=== PATIENT | male | born 1950 | race Caucasian/White ===

== ENCOUNTER 2017-09-21 09:34 | Outpatient (CLI) | payer MEDICARE, OTHER ==
--- NOTE | 2017-09-21 11:33 | RAD ---
TWO VIEWS OF THE CHEST: 09/21/2017 HISTORY: Shortness of breath. Dyspnea. COMPARISON: 03/23/2017 FINDINGS: There is a moderate sized left pleural effusion, increased since the 03/23/2017 exam. There is nonsp ecific perihilar and bibasilar interstitial opacity. There is increasing density in the left base, s uggesting left lower lobe volume loss, associated with enlarging left pleural effusion. Mass density is again seen within the right upper lobe, just inferior to the right first rib. Stent material overlies the region of the SVC. IMPRESSION: 1. Extensive interstitial opacity in the bilateral perihilar regions in both lung bases, which could signify interstitial edema or interstitial infectious process, slightly worsened when compared to pr ior imaging. 2. Enlarging left-sided pleural effusion with associated worsening opacity in the left lung base. 3. Stable nodular mass in the right upper lobe. POS: [facility]
== END 2017-09-21 09:35 | disposition home or self-care (01) ==
LOC: RAD 09:34
PROVIDERS: ATTEND Internal Medicine Critical Care Medicine
DX: R06.00 Dyspnea, unspecified (principal); J90 Pleural effusion, not elsewhere classified; R91.1 Solitary pulmonary nodule; J98.4 Other disorders of lung
CPT/HCPCS: 71020

== ENCOUNTER 2017-10-03 06:34 | Inpatient (IN) | payer MEDICARE, OTHER ==
[2017-10-03] MEDS ORDERED: Nitroglycerin 2% Ointment 1 INCH/1 GM Packet ONE (07:14)
[2017-10-03 07:15] LABS: Lactic Acid - Sepsis 1.2 mmol/L (0.5-2.2)
[2017-10-03 07:21] LABS: ALT (SGPT) 13 U/L (8-55); AST (SGOT) 16 U/L (5-34); Alkaline Phosphatase 97 U/L (40-150); Anion Gap 14 mmol/L (10-20); BUN (Urea Nitrogen) 26 mg/dL (8.4-25.7); Bilirubin, Total 0.5 mg/dL (0.2-1.2); CK (CPK) 48 U/L (30-200); Calc. Creatinine Clearance 0 mL/min (70-130); Calcium 9.2 mg/dL (7.8-10.44); Carbon Dioxide 29 mmol/L (23-31); Chloride 103 mmol/L (98-107); Estimated GFR-MDRD 18; Globulin 4.2 g/dL (2.4-3.5); Lipase 10 U/L (8-78); Protein, Total 7.8 g/dL (5.8-8.1)
[2017-10-03 07:24] LABS: Troponin I 0.037 ng/mL (< 0.028)
[2017-10-03] MEDS ORDERED: Piperacillin/Tazobactam 2.25 GM in Sodium Chloride 0.9% 100 ML IVPB ONE (07:30)
[2017-10-03 07:35] LABS: #Basophils 0.1 thou/uL (0.0-0.2); #Eosinphils 0.2 thou/uL (0.0-0.7); #Lymphocytes 2.2 thou/uL (1.20-3.40); #Monocytes 0.9 thou/uL (0.11-0.59); #Neutrophils 11.1 thou/uL (1.40-6.50); %Basophils 0.4 % (0.0-1.0); %Eosinophils 1.3 % (0.0-10.0); %Lymphocytes 15.4 % (21.0-51.0); %Monocytes 6.3 % (0.0-10.0); Hematocrit 35.2 % (42.0-52.0); Macrocytosis SLIGHT = 6-15 cells (100X) (0-5/hpf); Mean Platelet Volume 7.9 fL (7.4-10.4); Polychromasia SLIGHT = 2-3 cells (100X) (0-2/hpf); Red Blood Cell (RBC) Count 3.14 mill/uL (4.70-6.10); Target Cells SLIGHT = 2-5 cells (100X) (0-1/hpf); White Blood Cell (WBC) Count 14.5 thou/uL (4.8-10.8)
--- NOTE | 2017-10-03 08:57 | RAD ---
PORTABLE CHEST: HISTORY: Shortness of breath and dyspnea. COMPARISON: 09/21/17. FINDINGS/IMPRESSION: Cardiomegaly with vascular congestion. Bilateral effusions, larger on the left. Interstitial and strange zy alveolar densities bilaterally, prominent in the lateral lung suggesting edema. Superimposed infi ltrate not excluded. The chest has worsened when compared to 09/21/17. POS: [facility]
[2017-10-03 11:17] LABS: Troponin I 0.041 ng/mL (< 0.028)
[2017-10-03] MEDS ORDERED: traMADol HCl 50 MG TAB PO PRN (12:26)
[2017-10-03 14:08] LABS: Troponin I 0.036 ng/mL (< 0.028)
--- NOTE | 2017-10-03 14:27 | HP ---
DATE OF ADMISSION: 10/03/2017 PRIMARY CARE PHYSICIAN: Dr. Pedro Segovia. HISTORY OF PRESENT ILLNESS: Dyspnea and low pulse ox. HISTORY OF PRESENT ILLNESS: This is a 67-year-old gentleman who has a history of type 1 diabetes; end-stage renal disease, on hemodialysis; known coronary artery disease; known peripheral vascular disease; COPD with pulmonary scarring; hypertension; history of tobacco abuse; history of a lcohol abuse, who presents to the emergency department today with episode of shortness of breath and a low pulse ox. The patient states that he was in his usual state of health over the past couple of months. He had dialysis 2 days ago, which was uneventful, and following that he developed shortness of breath and his pulse ox was down to 68%. It improved somewhat, and he was able to drive himself t o dialysis, but then they sent him to the emergency room for evaluation. Due to the low pulse ox and his dyspnea on exertion, he was sent to the emergency room and was evaluated and found to have a com plete white out on his chest x-ray and started on oxygen therapy, which he uses at home as well as an tibiotics. He is feeling some better now. Dialysis was initiated this morning here in the hospital. He has had some improvement of his shortness of breath, but continued to be not quite at his baseli ne. On review of his chart, he has had several episodes of bronchitis, COPD exacerbation, which typically would improve after a couple of days of antibiotics and steroids. He had a pulmonary function test done in 06/[address] Martinez, which revealed severe restrictive disease. He is status post thora centesis by Dr. Martinez in 2016 for persistent pleural effusion. He was last seen by Dr. Funes close to a year ago, and he is uncertain of when his last echocardiogram was done in her office. PAST MEDICAL AND SURGICAL HISTORY: Hypertension, hyperlipidemia, known coronary artery disease, stat us post cardiac catheterization with stent placement, COPD with severe restrictive lung disease, type 1 diabetes, history of alcohol abuse, history of tobacco abuse. PAST SURGICAL HISTORY: Cholecystectomy, multiple right shoulder surgeries, splenectomy, left thorace ntesis for pleural effusion, and AV fistula for hemodialysis. MEDICATIONS: Include amlodipine 10 mg daily, prednisone p.r.n., albuterol inhaler p.r.n., Humulin R 5 units t.i.d. with meals, Novolin R sliding scale, Lantus 30 units in the evening, lisinopril 20 mg daily. ALLERGIES: None. FAMILY HISTORY: Father at 82 with heart disease. Mother at 100 years of age. SOCIAL HISTORY: He lives alone. He is . Quit smoking in 2012. Denies alcohol use at this t [place], but was a heavy drinker in the past. He has been sober for over 20 years. Daily caffeine usage . REVIEW OF SYSTEMS: As per the history of present illness. General: He denies any recent fevers, ch ills, or recent upper respiratory symptoms. HEENT: Denies headache, visual, or hearing changes. Ca rdiac: Denies chest pain, episodes of shortness of breath, but no palpitations. He is followed by John Funes with Cardiology. Pulmonary: No cough and no hemoptysis. Positive for dyspnea as well as dy spnea on exertion. He wears oxygen chronically at home. Gastrointestinal: Denies nausea, vomiting, abdominal pain, melena, or hematochezia. Genitourinary: Denies dysuria or hematuria. Neurologic: Positive weakness. No seizures, syncope, no falls recently. PHYSICAL EXAMINATION: VITAL SIGNS: Temperature 98.1, pulse of 83, respirations 18, blood pressure 134/69, pulse ox of 91% on 2 liters. GENERAL: He is awake and alert, in no acute distress. No conversational dyspnea. NECK: Supple. No JVD, adenopathy, or bruits. HEART: Regular rate and rhythm with 2/6 systolic ejection murmur. LUNGS: Decreased breath sounds bilaterally. He does have scattered rhonchi throughout with expirato ry wheezes, no rales at the bases. ABDOMEN: Flat, soft, nontender, nondistended. No hepatosplenomegaly. No CVA tenderness. EXTREMITIES: Trace edema bilaterally. LABORATORY DATA: Sodium 141, potassium 4.6, chloride 103, CO2 of 29, BUN and creatinine 26 and 3.42 with a GFR of 18, glucose was 140, lactic acid 1.2, calcium 9.2, AST and ALT are normal. Troponin I of 0.037 and 0.041. BNP is pending. Lipase was normal. White blood cell count was elevated at 14,5 00, hemoglobin and hematocrit 11.2 and 35.2, platelets of 298. Chest x-ray revealed cardiomegaly wit h bilateral effusions, worse on the left. Hazy alveolar densities suggesting edema, but cannot exclu de infiltrate. ASSESSMENT AND PLAN: This is a 67-year-old gentleman with multiple medical problems, now with worsen ing dyspnea and low pulse ox at home. This is improved with dialysis. 1. Possible pneumonia. We will continue antibiotics including Levaquin. With a history of persiste nt pleural effusion and chronic obstructive pulmonary disease, we will consult Dr. Martinez for evalua tion. 2. Chronic obstructive pulmonary disease exacerbation. We will continue antibiotics and start oral steroids as well as nebulizer treatments p.r.n. He is chronically on oxygen. 3. Known coronary artery disease with pleural effusion. We will rule out congestive heart failure e xacerbation. We will check echocardiogram and add BNP to labs already ordered. We will consult Dr. Funes for evaluation on his cardiac status as well. 4. Type 1 diabetes. We will continue insulin and start insulin sliding scale, especially with start ing steroid therapy. We will watch his sugars closely. 5. Hypertension is, stable. 7. DVT prevention. We will start on subcu Lovenox. 8. Code status: The patient desires a FULL CODE.
[2017-10-03 14:28] VITALS: BMI 20.5
[2017-10-03] MEDS: Insulin Regular 300 UNITS/3 ML VIAL SC SCH (17:17)
[2017-10-03] MEDS: Calcium Acetate 667 MG CAP PO SCH (17:18)
[2017-10-03] MEDS: Pancrelipase DR 12000 1 CAP PO SCH (17:18)
[2017-10-03] MEDS ORDERED: HumaLOG 300 UNITS/3 ML VIAL SC PRN (19:04)
[2017-10-03] MEDS ORDERED: Dextrose 50% Abboject 50 ML SYRINGE IVP PRN (19:04)
[2017-10-03] MEDS ORDERED: Dextrose 5% in Water 1,000 ML IV PRN (19:04)
[2017-10-03] MEDS ORDERED: cloNIDine 0.1 MG TAB PO PRN (19:04)
[2017-10-03] MEDS ORDERED: Insulin Detemir 100 UNITS/ML 30 UNITS in Pre-Filled Syringe SC SCH (21:00)
[2017-10-03] MEDS ORDERED: Non-Formulary Item 1 EACH (Insulin Glargine [Lantus Vial] 30 UNITS) SQ SCH (21:00)
[2017-10-03] MEDS: traMADol HCl 50 MG TAB PO PRN (21:13)
[2017-10-03] MEDS: Insulin Detemir 100 UNITS/ML 15 UNITS in Pre-Filled Syringe SC SCH (21:16)
--- NOTE | 2017-10-03 23:25 | CON ---
DATE OF CONSULTATION: 10/03/2017 CONSULTING PHYSICIAN: Robert Frazier M.D. REQUESTING PHYSICIAN: ER physician. REASON FOR CONSULTATION: Respiratory failure in a patient with end-stage renal disease. IMPRESSION: 1. End-stage renal disease, hemodialysis dependent, due for dialysis today, but could not because of hypoxic respiratory failure. 2. Hypoxic respiratory failure in the context of fluid overload as well as pleural effusion. 3. Progressive weight/muscle loss. 4. Type 1 diabetes. PLAN: 1. Emergent hemodialysis with ultrafiltration as tolerated by hemodynamics. 2. Pulmonary consult needed to address the left-sided pleural effusion. 3. Further management will be dependent on the clinical course. HISTORY OF PRESENT ILLNESS: History is that of a 67-year-old gentleman with end-stage renal disease, who showed up for dialysis today, however, was noted to be very dyspneic and O2 saturation was noted to be in the 60s. I did inform the dialysis center to send the patient over to the hospital for fur ther evaluation. The patient does have a history of COPD and felt a little bit sick and on presentat ion to the ER, chest x-ray revealed left-sided pleural effusion with evidence of pulmonary congestion . Decision has now been taken to involve Renal in the management of this case. PAST MEDICAL HISTORY: Significant for end-stage renal disease, hemodialysis dependent, type 1 diabet es, hypertension, dyslipidemia, remote history of alcohol or tobacco abuse. REVIEW OF SYSTEMS: As documented in the body of the history. FAMILY HISTORY: None significantly related to the presenting illness. SOCIAL HISTORY: Remote history of alcohol abuse. PHYSICAL EXAMINATION: GENERAL: The patient was found to be cachectic. VITAL SIGNS: Noted with the following vital signs: Afebrile with temperature 98.1, pulse 83, respir atory rate 18, O2 sat 91% on 4 liters, blood pressure 164/80. HEENT: Unremarkable. CARDIOVASCULAR SYSTEM: First and second heart sounds were heard. RESPIRATORY SYSTEM: Revealed some rhonchi and absent breath sounds on the left side. DIGESTIVE SYSTEM: Revealed a benign abdomen with positive bowel sounds. EXTREMITIES: Showed no significant peripheral edema. NEUROLOGIC: Alert and oriented. MUSCULOSKELETAL SYSTEM: Showed a patient who is obviously losing a lot of muscle mass. SUMMARY: A 67-year-old gentleman with end-stage renal disease who showed up hypoxic and is now being managed in the hospital. Thank you for this consultation. We will follow with you.
--- NOTE | 2017-10-03 23:28 | CON ---
DATE OF CONSULTATION: 10/03/2017 HISTORY OF PRESENT ILLNESS: Nabil is a pleasant 67-year-old gentleman who sees Dr. Martinez regularl y. His last thoracentesis was done about a year and a half ago. He now says as of , he was having some difficulty with breathing without any associated chest pain, chills, or sweats. He has lower extremity swelling. On Thursday his oxygen saturations dropped to the 70s. He has a low flow O2. Apparently this morning, his sats in the 60s and he went for dialysis, apparently because o f low oxygen saturations in the 60s, dialysis stopped, he was transferred here. He is supposed to see Dr. Funes in early October. He has limitation to his activity because of dyspnea. EXTENSIVE PAST MEDICAL HISTORY: Outlined by Dr. Martinez. Chronic renal failure, coronary artery dis ease, diabetes, hypertension, chronic pain, osteomyelitis. Previous decortication. Additionally, he has included peripheral vascular disease. PAST SURGICAL HISTORY: Orthopedic, shoulder, pancreatic surgery, gallbladder surgery, splenectomy, a ccess. MEDICATIONS: From home includes low-flow O2, tramadol, Creon, lisinopril 10, insulin, calcium, amlod ipine 10. Now started on prednisone and Levaquin, which I agree along with his nebulizer treatments. REVIEW OF SYSTEMS: Ten-point negative. PHYSICAL EXAMINATION: VITAL SIGNS: His blood pressure is 164/80, sats 94 liters, temperature 98, pulse 79. CHEST: Decreased breath sounds with left greater than right. CARDIAC: Normal S1, S2. No gallops. ABDOMEN: Soft. No masses. LABORATORY DATA: White count 14,000, H&H 11 and 35, platelet 298. Creatinine 3.4. BNP is 4863. IMPRESSION: 1. Restricted pulmonary impairment secondary to bilateral pleural effusion. 2. Bilateral pleural effusions, left greater than right secondary to a combination of renal failure, diastolic dysfunction. 3. Status post pancreatic surgery. He has got much larger effusion on the left side than on his previous x-rays. He may get dialyzed to [facility]. We may consider during the thoracentesis. He still remains symptomatic on the left side. Notify Dr. Martinez on Thursday.
[2017-10-04] MEDS: traMADol HCl 50 MG TAB PO PRN ×4 (04:20→21:53)
[2017-10-04] MEDS: Insulin Regular 300 UNITS/3 ML VIAL SC SCH ×3 (08:37→17:00)
[2017-10-04] MEDS: Pancrelipase DR 12000 1 CAP PO SCH ×3 (08:41→17:54)
[2017-10-04] MEDS: Calcium Acetate 667 MG CAP PO SCH ×3 (08:41→17:54)
[2017-10-04] MEDS: predniSONE 20 MG TAB PO SCH (08:42)
[2017-10-04] MEDS: Enoxaparin Sodium 30 MG/0.3 ML SYRINGE SC SCH (08:43)
[2017-10-04] MEDS ORDERED: Amlodipine 10 MG TAB PO SCH (09:00)
[2017-10-04] MEDS ORDERED: Lisinopril 10 MG TAB PO SCH (09:00)
--- NOTE | 2017-10-04 12:36 | PRG ---
DATE OF SERVICE: 10/04/2017 SUBJECTIVE: The patient is sitting up on the side of the bed. He reports feeling little better, but states he is still needing 4 liters of oxygen. He denies pain this morning. PHYSICAL EXAMINATION: VITAL SIGNS: Temperature 98.7, pulse 74, respirations 18, oxygen saturation 96% on 4 liters, blood p ressure 153/77. GENERAL: Alert and oriented x3 with no acute distress. HEART: Regular rate and rhythm, 2/6 systolic murmur. LUNGS: Coarse breath sounds and wheezes throughout. No rales. ABDOMEN: Soft, nontender, nondistended. Bowel sounds heard throughout. EXTREMITIES: Trace edema bilaterally. LABORATORY DATA: White blood cell count 14.5, hemoglobin 11.2, hematocrit 35.2, platelets 298. No n ew labs. ASSESSMENT AND PLAN: 1. Restrictive pulmonary disease. 2. Bilateral pleural effusion. Pulmonology is following. He may need a thoracentesis. 3. Chronic obstructive pulmonary disease exacerbation. Continue antibiotics and steroids. Breathin g well better today. 4. Coronary artery disease. Echo report pending. His BNP is very high, although this could be part ially related to end-stage kidney disease. 5. End-stage renal disease. The patient receives hemodialysis by Dr. Jones. 6. Type 1 diabetes. Continue insulin and sliding scale insulin. 7. Hypertension. His blood pressure is mildly elevated here. This is probably due to fluid overloa d at this time.
--- NOTE | 2017-10-04 12:59 | RAD ---
TWO VIEW CHEST: History Dyspnea. COMPARISON: 10/03/17. FINDINGS: Large left effusion again noted, although the size of this effusion has decreased. Has there been th oracentesis? There continues to be vascular and interstitial congestion suggesting diffuse interstitial and early alveolar edema. There is a small right effusion which is stable. IMPRESSION: 1. The moderate-sided left effusion appears slightly smaller than yesterday. 2. Vascular and interstitial congestive changes and small right effusion again noted. POS: [facility]
--- NOTE | 2017-10-04 14:24 | CON ---
DATE OF CONSULTATION: 10/04/2017 HISTORY OF PRESENT ILLNESS: Pedro Ferrer is a 67-year-old white male who states that he is a patient of Dr. Funes. In 04/2005, he was followed by Dr. Vasques and underwent cardiac catheterization. His left main LAD and circumflex were normal; however, he had a 70% right coronary artery lesion which was stented with a Taxus 3.5 x 32 mm stent. In 04/2007, he had repeat catheterization. Ejection fraction was 45% with inferior hypokinesis. The stent in the right coronary artery was widely patent. He now has end-stage renal disease as well as COPD. He states he has been having problems with increased shortness of breath as well as peripheral edema. At times with walking will become short of breath. His O2 saturation would be 68%-70%. At times with this, he would develop some chest pressure that would last approximately 2 minutes. He does not recall ever having the chest pressure unless his O2 saturations had dropped. Pulmonary function test in 2016 revealed severe restrictive disease. PAST MEDICAL HISTORY: Hypertension, hyperlipidemia, diabetes, coronary artery disease, COPD with severe restrictive lung disease, and history of ETOH abuse. MEDICATIONS: Amlodipine 10 mg daily, PhosLo t.i.d., Lantus 10 units q.p.m., Humulin R 5 units t.i.d., lisinopril 10 mg daily, pancrelipase DR 2 capsules t.i.d. ALLERGIES: None. SOCIAL HISTORY: He quit smoking in 2012. He was a heavy drinker in the past, but has not had anything to drink for 20 years. FAMILY HISTORY: Father had heart disease. REVIEW OF SYSTEMS: Twelve point review of systems otherwise unremarkable. PHYSICAL EXAMINATION: VITAL SIGNS: 153/77, pulse of 74. HEENT: PERRL. NECK: Supple. CHEST: Reveals crackles at the left base, but otherwise clear. CARDIAC: S1 and S2 are normal, without any S3 or S4. There is a 1/6 systolic ejection murmur. ABDOMEN: Normal bowel sounds, without tenderness or organomegaly. EXTREMITIES: Revealed 1-2+ ankle edema. NEUROLOGIC: Grossly intact. SKIN: Warm and dry. LABORATORY DATA: EKG revealed normal sinus rhythm with right bundle branch block. Echocardiogram revealed left pleural effusion, mild left ventricular enlargement, moderate concentric left ventricular hypertrophy, ejection fraction of 25%-30%, left atrial enlargement, moderate mitral regurgitation, mild tricuspid regurgitation and mild pulmonic regurgitation. Hemoglobin 11.2, hematocrit 35.2, white count 4500, platelets 298,000. Troponin I is 0.041, BNP 4863.5, sodium 141, potassium 4.6, chloride 103, carbon dioxide 29, BUN 26, creatinine 3.42. Glucose 140. Chest x-ray revealed cardiomegaly with bilateral pleural effusions, left greater than right. IMPRESSION: 1. Severe left ventricular dysfunction with ejection fraction of 25%-30%. 2. Bilateral pleural effusions. 3. End-stage renal disease. 4. Chronic obstructive pulmonary disease with restrictive lung disease with exertional hypoxemia. 5. Coronary artery disease, status post stent placement in the right coronary artery with last catheterization here in 2006 which continues to show patency. 6. Diabetes. 7. Hypertension. 8. Hyperlipidemia. 9. Former smoker. 10. Former heavy ETOH abuse. PLAN: Fasting lipid profile will be obtained. The patient will continue to have volume removed at dialysis. It would be nice to place him on a beta violette; however, I am somewhat hesitant with his restrictive lung disease at this time. With left ventricular dysfunction, his lisinopril dose will be increased and amlodipine dose will be reduced. MTDD
--- NOTE | 2017-10-04 18:35 | PRG ---
DATE OF SERVICE: 10/04/2017 SUBJECTIVE: This morning, he said he is somewhat better. PHYSICAL EXAMINATION: VITAL SIGNS: His sats are 96% on 4 liters, temperature 98, respirations 18, pulse 74. CHEST: Bilateral crackles. LUNGS: Left lung, one third decreased breath sounds. CARDIAC: Normal S1, S2, no gallops. ABDOMEN: No masses. IMPRESSION: 1. Bilateral pleural effusions, left greater than right. 2. Hypoglycemia. 3. Chronic renal failure. PLAN: repet x-ray, will consider doing a thoracentes if effusion larger otherwise, continue dialysis. We will follow. JESSICA
[2017-10-04] MEDS: Insulin Detemir 100 UNITS/ML 15 UNITS in Pre-Filled Syringe SC SCH (21:51)
[2017-10-04] MEDS: Lisinopril 10 MG TAB PO SCH (21:52)
[2017-10-05] MEDS: traMADol HCl 50 MG TAB PO PRN (05:29)
--- NOTE | 2017-10-05 07:08 | PRG ---
DATE OF SERVICE: 10/04/2017 SUBJECTIVE: The patient was seen and examined today. The patient seems to be very emotional as he r elates to his clinical condition. Noted with the following vital signs. OBJECTIVE: VITAL SIGNS: Afebrile, temperature 99.3, pulse 81, respiratory rate of 18, O2 sat of 91%, blood pres sure 158/73. HEENT: Unremarkable. CARDIOVASCULAR SYSTEM: First and second heart sounds were heard. RESPIRATORY SYSTEM: Reveals some rales and absent breath sounds especially on the left lower hemitho rax. DIGESTIVE SYSTEM: Revealed a benign abdomen with positive bowel sounds. EXTREMITIES: Showed 2-3+ bilateral lower extremity edema. LYMPHATICS: No peripheral lymphadenopathy. LABORATORY INVESTIGATION: Showed a white count of 14.5. No chemistry today. IMPRESSION: 1. End-stage renal disease, hemodialysis dependent. 2. Hypervolemia. 3. Respiratory failure in the context of chronic obstructive pulmonary disease and . 4. Failure to thrive/moderately severe protein-energy malnutrition. PLAN: 1. Please change the patient's diet from renal low-protein diet to a high-protein regular diet. 2. The patient may be dialyzed tomorrow or next depending on the hemodynamics and oxygenation status post possible thoracentesis. 3. Further management will be dependent on the clinical course.
--- NOTE | 2017-10-05 08:12 | PRG ---
DATE OF SERVICE: 10/05/2017 He is breathing much more comfortably this morning. PHYSICAL EXAMINATION: VITAL SIGNS: Temperature is 98.1, pulse 97, respirations 16, O2 sat 93% on 4 liters, blood pressure 137/71. HEENT: Unremarkable. NECK: No JVD. LUNGS: He has mildly diminished breath sounds in both bases. CARDIAC: S1 and S2 regular with a 2/6 systolic murmur. ABDOMEN: Soft and nontender. EXTREMITIES: No clubbing, cyanosis. He has trace edema. LABORATORY DATA: No labs were done today. His echocardiogram from 2 days ago demonstrated a severel y decreased EF of 25-30%. He has moderate mitral regurgitation. ASSESSMENT: 1. Pleural effusion secondary to fluid overload. I think the difference between the last several mo nths and the past is the fact that he has developed a fairly marked left ventricular dysfunction 2. Chronic renal failure requiring hemodialysis. RECOMMENDATIONS: This may be a case where the patient needs to have dialysis more often with less re moved each time. His heart is not where he can tolerate severe every other day fluid overload. Dr. Funes is his drivability technician and I am sure she will have some recommendations in regards to management of his systolic heart failure. I do not think the patient is infected and I would assume that antibiot ics can be stopped.
[2017-10-05] MEDS: Pancrelipase DR 12000 1 CAP PO SCH ×3 (09:21→16:44)
[2017-10-05] MEDS: Calcium Acetate 667 MG CAP PO SCH ×3 (09:21→16:44)
[2017-10-05] MEDS: Insulin Regular 300 UNITS/3 ML VIAL SC SCH ×3 (09:21→18:00)
[2017-10-05] MEDS: Lisinopril 10 MG TAB PO SCH ×2 (09:22→21:23)
[2017-10-05] MEDS: Amlodipine 5 MG TAB PO SCH (09:22)
[2017-10-05] MEDS: predniSONE 20 MG TAB PO SCH (09:22)
[2017-10-05] MEDS: Enoxaparin Sodium 30 MG/0.3 ML SYRINGE SC SCH (09:23)
--- NOTE | 2017-10-05 13:02 | PRG ---
DATE OF SERVICE: 10/05/2017 SUBJECTIVE: Mr. Ferrer is sitting up in bed and eating this morning. He is still short of breath an d he noticed some mild cough. Review of his medical records and other note showed that this appears to be volume overload with a left pleural effusion as well as a decreased ejection fraction from card iac purposes as a combination of all considerations from above although as well as some nutritional c omponent. He still reports some shortness of breath with minimal exertion. PHYSICAL EXAMINATION: VITAL SIGNS: Temperature 97.7, BP 136/73. LUNGS: Reveal decreased breath sounds at the left base. No wheezes, no rales are appreciated. HEART: Reveals a regular rate and rhythm without murmurs. EXTREMITIES: Show 1-2+ edema bilaterally. IMPRESSION: Dyspnea, shortness of breath, multifactorial, combination of chronic obstructive pulmona ry disease, left pleural effusion, restrictive lung disease as well as congestive heart failure with decreased ejection fraction, I do not see any signs of pneumonia at this time. PLAN: We discussed the findings with the patient. We will discuss findings with his other providers , Dr. Martinez, Dr. Funes, and Dr. Jones to make final recommendations at this point. There is no t much more need be done while in the hospital except for change of medications, possibly we can star t thinking about discharge him soon.
[2017-10-05] MEDS ORDERED: Acetaminophen 325 MG TAB PO PRN (16:49)
--- NOTE | 2017-10-05 16:54 | PDOC.CTH ---
<Emily Gentile - Last Filed: 10/05/17 17:52> Cardiology Progress Note - Subjective The pt seen and examined. No overnight events. No cardiac complaints. He complains of pin point of discomfort in his lateral side of Lt chest, next his Lt nipple. He still has BAILEY. - Objective Vital Signs Temp Pulse Resp BP BP Pulse Ox 10/05/17 15:08 98.1 F 75 20 162/79 H 95 10/05/17 11:08 97.7 F 78 20 136/73 94 L 10/05/17 09:22 81 140/75 10/05/17 08:10 98.1 F 81 18 10/05/17 07:10 98.1 F 81 18 143/65 H 97 Weight 163 lb 2.273 oz 10/04/17 10/05/17 10/06/17 06:59 06:59 06:59 Intake Total 520 1166 Output Total 380 780 Balance 140 386 - Physical Examination General/Neuro: alert & oriented x3 Neck: no JVD present Lungs: other: (very diminished at bases) Heart: RRR, other: (frequent PVCs) Abdomen: soft Extremities: other: (3+ pitting BLE edemas) - Telemetry Telemetry Rhythm: SR, PCVs, unchanged BBB - Labs Result Diagrams: 10/03/17 06:45 10/03/17 06:45 Troponin/CKMB CK-MB (CK-2) 1.8 ng/mL (0-6.6) 10/03/17 06:45 Troponin I 0.036 ng/mL (< 0.028) H 10/03/17 12:45 - Assessment/Plan 1. Acute on Chronic Systolic HF - EF 25-30% on 10/03/17 which EF 50-55% in 2016. Stable after having HD. Cardiac Cath on 10/06/17 for decreased EF; Cont. monitor 2. COPD exacerbation - on 2LNC. managed by furnace charger 3. LT plural effusion - 4. CAD with Hx of stent in RCA in 2004 - Stable; cont. monitor on tele 5. HTN - stable with current medication 6. ESRD - managed by biochemistry specialist 7. DM type 2 - managed by PCP 8. PVD - Cath 03/2015 showed diffuse PVD with 100% occlusion of bilateral superficial femoral arteries with at least one vessel runoff to the foot. cont. monitor MAR reviewed * The Cardiac cath procedure and the risk of the procedure, such as hemorrhage, infection, thrombosis, CVA, ID, and , were explained to the pt by Dr Funes. The pt voiced understanding and agreed to proceed the procedure tomorrow. Review of Systems - Review of Systems Constitutional: reports: no symptoms reported EENTM: reports: no symptoms reported Respiratory: reports: see HPI Cardiac (ROS): reports: see HPI ABD/GI: reports: no symptoms reported : reports: no symptoms reported Musculoskeletal: reports: no symptoms reported Skin: reports: no symptoms reported Neurological: reports: no symptoms reported Endocrine: reports: no symptoms reported <Mary Jane Funes - Last Filed: 10/05/17 17:56> Cardiology Progress Note - Objective Vital Signs Temp Pulse Resp BP BP Pulse Ox 10/05/17 15:08 98.1 F 75 20 162/79 H 95 10/05/17 11:08 97.7 F 78 20 136/73 94 L 10/05/17 09:22 81 140/75 10/05/17 08:10 98.1 F 81 18 10/05/17 07:10 98.1 F 81 18 143/65 H 97 Weight 163 lb 2.273 oz 10/04/17 10/05/17 10/06/17 06:59 06:59 06:59 Intake Total 520 1166 900 Output Total 380 780 Balance 140 386 900 - Labs Result Diagrams: 10/03/17 06:45 10/03/17 06:45 Troponin/CKMB CK-MB (CK-2) 1.8 ng/mL (0-6.6) 10/03/17 06:45 Troponin I 0.036 ng/mL (< 0.028) H 10/03/17 12:45 - Assessment/Plan Pt. was seen and eval. by me. I agree with the A/P by the BRIDGE EXPERT. I reviewed his prior records and cath. His last cath was in 2014. At that time he had a 60% stenosis in the LAd. Due to the worsening of his EF it may be beneficial to recath him to eval. the coronary status.I explained the procedure and risk to him.
[2017-10-05] MEDS ORDERED: Communication Order-Pharmacy FS SCH (18:00)
[2017-10-05] MEDS: Insulin Detemir 100 UNITS/ML 15 UNITS in Pre-Filled Syringe SC SCH (21:22)
[2017-10-06] MEDS ORDERED: Heparin 1000 UNIT/NS 500ML(OR) 1,000 ML ONE (06:53)
--- NOTE | 2017-10-06 07:29 | PRG ---
DATE OF SERVICE: 10/05/2017 SUBJECTIVE: The patient was seen and examined with no new complaint except the leg swelling. PHYSICAL EXAMINATION: VITAL SIGNS: Afebrile with temperature 98.1, pulse 75, blood pressure 152/70, and respiratory rate o f 20, and O2 sat of 95%. HEENT: Unremarkable with moist oral mucosa. No conjunctival injection or icterus. NECK: Supple. CARDIOVASCULAR: First and second heart sounds were heard. RESPIRATORY: Clear to auscultation. DIGESTIVE: Revealed a benign abdomen with positive bowel sounds. EXTREMITIES: Showed 2+ peripheral edema. LYMPHATICS: No peripheral lymphadenopathy. IMPRESSION: 1. Cardiomyopathy, query cause. 2. End-stage renal disease, on hemodialysis. 3. Hypervolemia with peripheral edema. 4. Hypertension. PLAN: 1. The patient's dialysis will be modified on ultrafiltration. 2. We will likely adjust this patient's diet to low salt diet. 3. Further management will be dependent on the clinical course.
[2017-10-06] MEDS ORDERED: traMADol HCl 50 MG TAB PO PRN (10:51)
[2017-10-06] MEDS ORDERED: Acetaminophen/Codeine 30-300mg Tablet PO PRN ×2 (10:51)
[2017-10-06] MEDS ORDERED: Sodium Chloride 0.9% 200 ML IV SCH (10:51)
[2017-10-06] MEDS ORDERED: Nitroglycerin 0.4 MG TAB (25 Tab Bottle) SL PRN (10:51)
[2017-10-06] MEDS: Insulin Regular 300 UNITS/3 ML VIAL SC SCH ×3 (10:55→17:43)
[2017-10-06] MEDS: Calcium Acetate 667 MG CAP PO SCH ×3 (10:56→17:43)
[2017-10-06] MEDS: Amlodipine 5 MG TAB PO SCH (10:56)
[2017-10-06] MEDS: Pancrelipase DR 12000 1 CAP PO SCH ×3 (10:56→17:43)
[2017-10-06] MEDS: Lisinopril 10 MG TAB PO SCH ×2 (10:56→20:27)
[2017-10-06] MEDS: predniSONE 20 MG TAB PO SCH (10:56)
[2017-10-06] MEDS: traMADol HCl 50 MG TAB PO PRN ×2 (10:58→17:50)
--- NOTE | 2017-10-06 11:17 | PRG ---
DATE OF SERVICE: 10/06/2017 SUBJECTIVE: He underwent cardiac catheterization this morning with finally three-vessel coronary art dwaine disease with a plan for stress test as an outpatient. He is breathing okay today. OBJECTIVE: VITAL SIGNS: On exam, his temperature is 97.7, pulse 74, blood pressure 102/70, respiratory rate 20. HEENT: Unremarkable. NECK: No JVD. CHEST: Fairly clear without wheezing. CARDIAC: S1 and S2 regular. ABDOMEN: Soft. EXTREMITIES: No edema. ASSESSMENT: 1. Chronic renal failure. 2. Cardiomyopathy - ischemic. 3. Pleural effusions, which appear to be volume related. RECOMMENDATION: From a pulmonary standpoint, he is cleared to go. He will have to be strict about fluid management as an outpatient. I would wean his prednisone rapidly. I do not think he needs to be on any antibiotic. He has to follow up with me as an outpatient.
--- NOTE | 2017-10-06 11:54 | PRG ---
DATE OF SERVICE: 10/06/2017 SUBJECTIVE: Mr. Ferrer is comfortable. He is still short of breath. He is sitting up in bed, requi ring oxygen. He is undergoing cardiac catheterization today as well as dialysis, no other medical pr oblems are noted. After reviewing notes from Pulmonology, it is apparent that the thoracentesis will not be done and has no medical value. Primarily his problem seems to be related to cardiomyopathy c ombined with COPD and end-stage renal disease. PHYSICAL EXAMINATION LUNGS: Reveal bilateral breath sounds, decreased at left base, which is an old finding. HEART: Reveals no murmur. EXTREMITIES: Show 1+ edema. IMPRESSION: 1. End-stage renal disease. 2. Cardiomyopathy. 3. Chronic obstructive pulmonary disease. 4. Left pleural effusion. PLAN: The patient will continue current medications at this time, awaiting results of cardiac cathet erization. Once catheterization results are known, we can probably start some discharge planning wit h looking into getting him out tomorrow or in incoordination with all specialties.
[2017-10-06] MEDS ORDERED: Iopamidol 370 76% 100 ML VIAL ONE (17:04)
[2017-10-06] MEDS ORDERED: Iopamidol 370 76% 50 ML VIAL FS ONE (17:04)
--- NOTE | 2017-10-06 20:18 | PRG ---
.DATE OF SERVICE: 10/06/2017 SUBJECTIVE: The patient was seen and examined today with no new complaints. Noted with the followin g vital signs on dialysis. OBJECTIVE: VITAL SIGNS: Afebrile with temperature 97.7, pulse 74, blood pressure 152/70. HEENT: Unremarkable. CARDIOVASCULAR SYSTEM: First and second heart sounds were heard. RESPIRATORY SYSTEM: Clear to auscultation. DIGESTIVE SYSTEM: Revealed a benign abdomen. EXTREMITIES: Shows some peripheral edema. NEUROLOGIC: Alert and oriented. No lateralizing sign. IMPRESSION: 1. End-stage renal disease on hemodialysis. 2. Hypervolemia. 3. Ischemic cardiomyopathy with reduced ejection fraction. 4. Pleural effusion. 5. Respiratory failure, on oxygen. PLAN: 1. The patient to continue with hemodialysis . The target will be to remove about 4.5 liters of fluid during dialysis with a modified prescription. 2. Further management to be dependent on the clinical course.
[2017-10-06] MEDS: Insulin Detemir 100 UNITS/ML 15 UNITS in Pre-Filled Syringe SC SCH (23:59)
[2017-10-07] MEDS: Insulin Regular 300 UNITS/3 ML VIAL SC SCH ×2 (07:42→12:06)
[2017-10-07] MEDS ORDERED: predniSONE 5 MG TAB PO SCH (08:00)
[2017-10-07] MEDS: Lisinopril 10 MG TAB PO SCH (08:11)
[2017-10-07] MEDS: Pancrelipase DR 12000 1 CAP PO SCH ×2 (08:11→12:05)
[2017-10-07 08:12] VITALS: TEMP 98.6
[2017-10-07] MEDS: Calcium Acetate 667 MG CAP PO SCH ×2 (08:12→12:05)
[2017-10-07] MEDS: Amlodipine 5 MG TAB PO SCH (08:12)
[2017-10-07] MEDS: traMADol HCl 50 MG TAB PO PRN (09:23)
--- NOTE | 2017-10-07 10:16 | PDOC.CTH ---
Cardiology Progress Note - Subjective The pt seen and examined. No overnight events. No cardiac complaints. His BLE edema is stable today. - Objective Vital Signs Temp Pulse Resp BP BP Pulse Ox 10/07/17 08:12 80 150/73 H 10/07/17 08:11 150/73 H 10/07/17 08:00 98.6 F 86 20 150/73 H 94 L 10/07/17 03:20 98.1 F 81 20 159/77 H 98 10/06/17 23:53 98.6 F 82 20 159/76 H 93 L Weight 163 lb 12.855 oz 10/06/17 10/07/17 10/08/17 06:59 06:59 06:59 Intake Total 1140 500 120 Output Total 650 Balance 490 500 120 - Physical Examination General/Neuro: alert & oriented x3 Neck: no JVD present Lungs: other: (diminished at bases) Heart: RRR Abdomen: soft Extremities: other: (2+ pitting BLE edemas) - Telemetry Telemetry Rhythm: SR - Labs Result Diagrams: 10/03/17 06:45 10/03/17 06:45 Troponin/CKMB CK-MB (CK-2) 1.8 ng/mL (0-6.6) 10/03/17 06:45 Troponin I 0.036 ng/mL (< 0.028) H 10/03/17 12:45 - Assessment/Plan 1. Acute on Chronic Systolic HF - EF 25-30% on 10/03/17 which EF 50-55% in 2016. Stable after having HD. Cardiac Cath on 10/06/17 which showed severe CAD and the pt needs to have Stress test as outpt. 2. COPD exacerbation - on 3LNC. managed by ranch hand 3. LT plural effusion - 4. CAD with Hx of stent in RCA in 2004 - Cardiac Cath on 10/06/17 which showed severe CAD and the pt needs to have Stress test as outpt. Stable; cont. monitor on tele 5. HTN - stable with current medication 6. ESRD - managed by sulfur chloride operator 7. DM type 2 - managed by PCP 8. PVD - Cath 03/2015 showed diffuse PVD with 100% occlusion of bilateral superficial femoral arteries with at least one vessel runoff to the foot. cont. monitor MAR reviewed * The Cardiac standpoint, the pt is stable to d/c to home; The pt will have PET stress test VIVIAN and f/u with Dr Funes' office following the stress test. Review of Systems - Review of Systems Constitutional: reports: no symptoms reported EENTM: reports: no symptoms reported Respiratory: reports: see HPI Cardiac (ROS): reports: no symptoms reported ABD/GI: reports: no symptoms reported : reports: no symptoms reported Musculoskeletal: reports: no symptoms reported Skin: reports: no symptoms reported
--- NOTE | 2017-10-07 13:28 | PRG ---
DATE OF SERVICE: 10/07/2017 SUBJECTIVE: Mr. Ferrer is feeling well. He has no chest pain. He feels like he is breathing a roberth le better. PHYSICAL EXAMINATION: VITAL SIGNS: Blood pressure 156/80, O2 sat 94% on 3 liters. LUNGS: Reveal bilateral breath sounds, decreased left base. HEART: Reveals no murmur. IMPRESSION: 1. End-stage renal disease. 2. Atherosclerotic coronary artery disease. 3. Cardiomyopathy. 4. Dyspnea secondary to chronic obstructive pulmonary disease, cardiomyopathy and renal failure. PLAN: The patient can be discharged home. He will follow up with Dr. Funes for stress testing and fu rther evaluation of his cardiac condition, possibly bypass surgery. He will follow up with me and Dr Darien Martinez p.r.n. basis. He will continue with his dialysis tomorrow.
[2017-10-07 14:34] VITALS: BP 153/69
--- NOTE | 2017-10-07 15:23 | PRG ---
DATE OF SERVICE: 10/07/2017 SUBJECTIVE: The patient was seen and examined, I am not able to follow him. PHYSICAL EXAMINATION: VITAL SIGNS: Afebrile with temperature 98.6, pulse 82, respiratory rate 20, O2 saturation 94%, blood pressure 100/69. HEENT EXAMINATION: Unremarkable with moist oral mucosa. No conjunctival injection or icterus. NECK: Supple. CARDIOVASCULAR SYSTEM: First and second heart sounds were heard. RESPIRATORY SYSTEM: Clear to auscultation. DIGESTIVE SYSTEM: Revealed a benign abdomen with positive bowel sounds. EXTREMITIES: No peripheral edema. SKIN EXAMINATION: No new gross rash. LYMPHATICS: No peripheral lymphadenopathy. PLAN: 1. From the renal standpoint, the patient is good for discharge. 2. We will continue outpatient dialysis with challenge on the patient's dry weight, so I will addres s the pulmonary status. 3. Patient to need improved nutrition, as the patient is severely suffering from malnutrition.
--- NOTE | 2017-10-07 23:14 | DIS ---
DATE OF ADMISSION: 10/03/2017 DATE OF DISCHARGE: 10/07/2017 DISCHARGE DIAGNOSES: 1. Atherosclerotic coronary artery disease. 2. Cardiomyopathy. 3. End-stage renal disease requiring dialysis. 4. Chronic obstructive pulmonary disease. 5. Insulin-dependent diabetes mellitus type 2, conversion to type 1. 6. Pancreatic insufficiency. ADMITTING PHYSICIAN: Dr. Pedro Segovia CONSULTING PHYSICIAN: Dr. Jones, Dr. Martinez, Dr. Funes. HOSPITAL SUMMARY: This is a 67-year-old male with a known history of the above diagnoses who present ed to the emergency room complaining of recurrent shortness of breath, decreased O2 sats for a while at dialysis. He underwent further dialysis here for fluid overload. Consultation was obtained from Cardiology, Pulmonology, as well as Nephrology. The patient underwent cardiac catheterization which did show atherosclerotic coronary artery disease, most likely not able to be stented. He underwent f urther treatment with further dialysis treatment with nebulizations. While in the hospital, he made slow, steady improvement through the use of dialysis. It was determined he could be discharged home on 10/07/2017. DISCHARGE MEDICATIONS: Prednisone 10 mg daily for 5 days, followed by 1 tablet p.o. daily for 5 days . Additionally, he was placed on calcium acetate, clonidine as needed every 6 hours for hypertension , DuoNebs every 6 hours, lisinopril 10 mg daily, Creon 12,000 units 2 tablets p.o. t.i.d., tramadol 5 0 mg as needed for pain, detemir insulin 50 units subcu at bedtime, amlodipine 10 mg daily. DISCHARGE PLAN: He will see myself and follow up in approximately 2-3 weeks, Dr. Martinez in 2-3 week s, Dr. Funes in 2-3 weeks for stress testing. He will see Dr. Jones for dialysis following disch arge.
== END 2017-10-07 14:40 | disposition home or self-care (01) | DRG 286 ==
LOC: ERS 06:34 → 2SE 10:37
PROVIDERS: ADMIT Family Medicine; ATTEND Family Medicine
PROC: 5A1D70Z Performance of Urinary Filtration, Intermittent, Less than 6 Hours Per Day (ICD-10-PCS; principal; 2017-10-03)
PROC: 4A023N7 Measurement of Cardiac Sampling and Pressure, Left Heart, Percutaneous Approach (ICD-10-PCS; 2017-10-06)
PROC: B2111ZZ Fluoroscopy of Multiple Coronary Arteries using Low Osmolar Contrast (ICD-10-PCS; 2017-10-06)
PROC: B2151ZZ Fluoroscopy of Left Heart using Low Osmolar Contrast (ICD-10-PCS; 2017-10-06)
PROC: B41D1ZZ Fluoroscopy of Aorta and Bilateral Lower Extremity Arteries using Low Osmolar Contrast (ICD-10-PCS; 2017-10-06)
DX: I13.2 Hypertensive heart and chronic kidney disease with heart failure and with stage 5 chronic kidney disease, or end stage renal disease (principal); J96.21 Acute and chronic respiratory failure with hypoxia; E43 Unspecified severe protein-calorie malnutrition; E87.70 Fluid overload, unspecified; E10.22 Type 1 diabetes mellitus with diabetic chronic kidney disease; K86.89 Other specified diseases of pancreas; E10.42 Type 1 diabetes mellitus with diabetic polyneuropathy; I50.23 Acute on chronic systolic (congestive) heart failure; N18.6 End stage renal disease; R64 Cachexia; J44.1 Chronic obstructive pulmonary disease with (acute) exacerbation; I08.1 Rheumatic disorders of both mitral and tricuspid valves; Z99.2 Dependence on renal dialysis; F17.210 Nicotine dependence, cigarettes, uncomplicated; F10.21 Alcohol dependence, in remission; Z99.81 Dependence on supplemental oxygen; E78.5 Hyperlipidemia, unspecified; I25.10 Atherosclerotic heart disease of native coronary artery without angina pectoris; Z95.5 Presence of coronary angioplasty implant and graft; Z79.4 Long term (current) use of insulin; I25.5 Ischemic cardiomyopathy; Z68.21 Body mass index [BMI] 21.0-21.9, adult; R62.7 Adult failure to thrive; E10.649 Type 1 diabetes mellitus with hypoglycemia without coma; I45.10 Unspecified right bundle-branch block
CPT/HCPCS: 36415; 36416; 71010; 71020; 80053; 80061; 82553; 83605; 83690; 83880; 84484; 85025; 90935; 93005; 93306; 93458; 93798; 96365; C1769; G0257; J1644; J1650; J1815; J1956; J2543; J7050; J7506

== ENCOUNTER 2017-11-16 07:56 | Emergency (ER) | payer MEDICARE, OTHER ==
[2017-11-16] MEDS ORDERED: Morphine 4 MG/ML Carpuject ONE (08:26)
[2017-11-16] MEDS ORDERED: Ondansetron ODT 4 MG TAB ONE (08:26)
--- NOTE | 2017-11-16 09:09 | RAD ---
CHEST 1 VIEW AND RIGHT RIB SERIES: Date: 11/16/17 HISTORY: Trauma, right-sided chest pain. FINDINGS/IMPRESSION: The heart is enlarged. There is pulmonary vascular congestion and left-sided pleural effusion. A stent is seen in the right upper medial chest. There are fractures involving the anterolateral aspe cts of the right 9th and 10th ribs. POS: [facility]
[2017-11-16] MEDS ORDERED: HYDROcodone/Acetaminophen 10/325 mg Tablet ONE (09:16)
== END 2017-11-16 09:40 | disposition home or self-care (01) ==
LOC: SCSER 07:56
DX: S22.41XA Multiple fractures of ribs, right side, initial encounter for closed fracture (principal); E11.9 Type 2 diabetes mellitus without complications; I10 Essential (primary) hypertension; Z87.891 Personal history of nicotine dependence; Z79.4 Long term (current) use of insulin; Z99.2 Dependence on renal dialysis; Z79.899 Other long term (current) drug therapy; W17.89XA Other fall from one level to another, initial encounter
CPT/HCPCS: 96372; J2270; Q0162

== ENCOUNTER 2017-11-18 18:37 | Inpatient (IN) | payer MEDICARE, OTHER ==
[~2017-11-18 18:37] MED LIST: ISOVUE-370 76%-LOCM 1 ML ONE
--- NOTE | 2017-11-18 20:03 | RAD ---
PORTABLE CHEST: 11/18/17 COMPARISON: 11/16/17 study. HISTORY: Trauma with right sided pain. The heart size is enlarged. Pulmonary vessels appear somewhat less engorged than on the prior exam. T here is still a large left effusion present. Atelectatic changes are seen in the right lung base. Rig ht rib fractures are identified. No pneumothorax. IMPRESSION: 1. Cardiomegaly with improvement to the pulmonary edema change. Still with a moderately large le ft effusion. 2. Atelectatic changes in the right lung base. Right sided rib fractures. No signs of pneumothor ax. POS: [facility]
[2017-11-18 20:23] LABS: #Lymphocytes 1.1 thou/uL (1.20-3.40); #Monocytes 0.9 thou/uL (0.11-0.59); #Neutrophils 7.5 thou/uL (1.40-6.50); %Basophils 0.3 % (0.0-1.0); %Eosinophils 0.2 % (0.0-10.0); %Lymphocytes 11.8 % (21.0-51.0); %Monocytes 9.6 % (0.0-10.0); %Neutrophils 78.1 % (42.0-75.0); Hemoglobin 10.3 g/dL (14.0-18.0); Mean Corpuscular HGB CONC 32.5 g/dL (32.0-36.0); Mean Corpuscular Hemoglobin 35.4 pg (27.0-31.0); Mean Platelet Volume 8.5 fL (7.4-10.4); Platelet Count 310 thou/uL (130-400); RBC Distribution Width 13.4 % (11.5-14.5); White Blood Cell (WBC) Count 9.5 thou/uL (4.8-10.8)
[2017-11-18 20:44] LABS: ALT (SGPT) 13 U/L (8-55); AST (SGOT) 18 U/L (5-34); Albumin 3.2 g/dL (3.4-4.8); Alkaline Phosphatase 148 U/L (40-150); Anion Gap 14 mmol/L (10-20); BUN (Urea Nitrogen) 26 mg/dL (8.4-25.7); Bilirubin, Total 0.4 mg/dL (0.2-1.2); Calc. Creatinine Clearance 0 mL/min (70-130); Calcium 8.4 mg/dL (7.8-10.44); Carbon Dioxide 33 mmol/L (23-31); Chloride 95 mmol/L (98-107); Estimated GFR-MDRD 19; Glucose 271 mg/dL (80-115); Potassium 4.8 mmol/L (3.5-5.1); Protein, Total 7.2 g/dL (5.8-8.1); Sodium 137 mmol/L (136-145)
[2017-11-18 20:48] LABS: CKMB 2.3 ng/mL (0-6.6); Troponin I 0.045 ng/mL (< 0.028)
--- NOTE | 2017-11-18 22:25 | CT ---
CT ANGIO OF CHEST PERFORMED WITH INTRAVENOUS CONTRAST ENHANCEMENT WITH 3D RECONSTRUCTIONS: 11/18/16 HISTORY: Shortness of breath. COMPARISON: 10/01/12 study. Two partially calcified right upper lobe pulmonary nodules measuring approximately 15 and 13 mm in si ze. These are essentially stable as compared to the prior exam. There are chronic lung changes seen. There is emphysematous change in both lung josé. There is a small right pleural effusion and right lower lobe atelectasis seen. Right lower lobe atelectasis or infiltrate. There is also some minimal c hanges in the right middle lobe. There is a larger somewhat loculated appearing pleural effusion seen in the left lung with fluid loculated more anteriorly. This has developed since the previous exam. T here is pronounced atelectatic change changes in the left lower lobe and lingular regions. There is a moderate pericardial effusion seen. There is good pulmonary artery opacification obtained, there is no CT evidence of a pulmonary embolus. The visualized liver parenchyma shows no findings. IMPRESSION: 1. Right sided pleural effusion with some right lower lobe infiltrate or atelectasis. 2. Large slightly loculated appearing left effusion. Some of the fluid appears to be loculated. It is new as compared to the prior examination. There is upper and lower lobe atelectatic lung change s seen associated with this. 3. Moderate pericardial effusion. 4. No CT evidence for pulmonary embolus. POS: [facility]
[2017-11-18] MEDS ORDERED: HYDROmorphone 0.5 MG/0.5 ML SYRINGE ONE (22:47)
[2017-11-18] MEDS ORDERED: Albuterol Sulfate 2.5 mg/3 ml Neb ONE (22:57)
[2017-11-19] MEDS ORDERED: Ondansetron ODT 4 MG TAB SL PRN (00:44)
[2017-11-19] MEDS ORDERED: Ondansetron HCl/PF 4 MG/2 ML Vial IVP PRN (00:44)
[2017-11-19] MEDS: Morphine 5 MG/ML SYRINGE SLOW IVP PRN ×5 (01:37→20:09)
[2017-11-19 04:34] VITALS: BMI 22.4
[2017-11-19] MEDS ORDERED: Dextrose 5% in Water 1,000 ML IV PRN (13:51)
[2017-11-19] MEDS ORDERED: Dextrose 50% Abboject 50 ML SYRINGE SLOW IVP PRN (13:51)
[2017-11-19] MEDS ORDERED: cefTRIAXone\\ROCEPHIN 1 GM in Sodium Chloride 0.9% 100 ML IVPB SCH (14:15)
[2017-11-19] MEDS ORDERED: cefTRIAXone\\ROCEPHIN 1 GM, Syringe 0.4 ML in Sterile Water 9.6 ML SLOW IVP SCH (15:00)
--- NOTE | 2017-11-19 16:34 | CON ---
DATE OF CONSULTATION: 11/19/2017 CONSULTING PHYSICIAN: Dr. Pedro Segovia. REASON FOR CONSULTATION: Pleural effusions. HISTORY OF THE PRESENT ILLNESS: Mr. Ferrer is a 67-year-old male with chronic renal failure. He rec eives dialysis 3 times weekly. I have been following him intermittently for a left pleural effusion. The pleural effusion waxes and wanes with his volume status. This was tapped a year and a half ago , was found to be transudative in nature. He came to the emergency room last night because of intractable pain on his right side. Several days ago, he fell on his right side and sustained a large hematoma on that side and broke a couple of rib s. He has been taking some morphine at home, but apparently was not enough to control his symptoms. He has also missed session of dialysis on Thursday, was dialyzed yesterday, but was told afterwards t hat he was still 6 pounds above his dry weight. Information for this consultation is obtained from talking with the patient and reviewing his records . I have also spoken to his attending physician, Dr. Segovia. PAST MEDICAL HISTORY: 1. Chronic renal failure. 2. Coronary artery disease. 3. Hypertension. 4. Osteomyelitis. 5. Diabetes mellitus. 6. Previous decortication for Staphylococcal empyema on the right. PAST SURGICAL HISTORY: He has had shoulder surgery, AV fistula placement, cholecystectomy and pancre atic surgery. MEDICATIONS PRIOR TO ADMISSION: Insulin, PhosLo, amlodipine, Tylenol, glargine insulin, Zestril, Duo Neb, Creon and tramadol. SOCIAL HISTORY: The patient formerly smoked, does not consume alcohol. ALLERGIES: None. REVIEW OF SYSTEMS: Twelve-point review of systems is negative aside from the pain on the right side, some dyspnea with exertion and a large hematoma on his right side. PHYSICAL EXAMINATION: VITAL SIGNS: Temperature is 99.1, pulse 90, respirations 20, O2 sat 96% on 3 liters and blood pressu re 131/61. GENERAL: He is disheveled, but is in no overt distress. HEENT: Remarkable for mild bitemporal wasting. Sclerae are anicteric. Oropharynx is clear. NECK: Without adenopathy or JVD. LUNGS: He has diminished breath sounds in both bases, left more so than the right. He has a large f ist sized hematoma at the inferior portion of his rib cage laterally and posteriorly. CARDIOVASCULAR: S1 and S2 regular, without murmur. ABDOMEN: Soft and nontender. EXTREMITIES: No clubbing, cyanosis, or edema. LABORATORY AND IMAGING DATA: Sodium 137, potassium 4.8, BUN 26, creatinine 3.2 and glucose 271. Whi te blood cell count 9.5, hematocrit 31.6 and platelet count 310. His CT and chest x-ray were reviewe d by me personally, I have also reviewed the radiologist's report. He has a fairly substantial left- sided effusion. He is developing a chronic peel around this effusion and he has a pericardial effusi on - I do remember this being an issue in the past. An echocardiogram obtained in September showed a severely depressed left ventricular ejection fraction with an ejection fraction of 25% to 30%, but th ere was no mention of pericardial effusion at that time, he also had moderate mitral regurgitation. ASSESSMENT: 1. Status post fall with right-sided rib fractures and a large hematoma. 2. Fairly substantial left pleural effusion, which in the past has waxed and waned with dialysis. 3. Pericardial effusion. RECOMMENDATIONS: 1. He wants his pain medicine increased to control his pain. We will also consult the Anesthesia pa in service to look at him. 2. He declined thoracentesis at this time as the fluid as usual being controlled with dialysis in past. However, with the concurrent development of a pericardial effusion, the situation deserves t o be watched closely. His health has been declining and the development of malignancy would be a con cern given his overall poor health and previous smoking history. Thank you for the referral. I will follow with you. The above consultation encompassed 70 minutes. Of this 70 minutes, greater than 50% of the time was spent in counseling and coordination of care.
[2017-11-19] MEDS ORDERED: Pancrelipase DR 12000 1 CAP PO SCH (17:00)
[2017-11-19] MEDS ORDERED: INSULIN GLARGINE 10 UNIT SQ SCH (17:00)
[2017-11-19] MEDS ORDERED: Acetaminophen 1,000 MG in Premix Bag 1 BAG IVPB SCH (18:00)
[2017-11-19] MEDS: Calcium Acetate 667 MG CAP PO SCH (18:00)
[2017-11-19] MEDS: Pancrelipase DR 12000 1 CAP PO SCH (18:01)
[2017-11-19] MEDS: Insulin Detemir 100 UNITS/ML 10 UNITS in Pre-Filled Syringe 1 EACH SC SCH (18:02)
[2017-11-19] MEDS: Insulin Regular 300 UNITS/3 ML VIAL SC SCH (18:03)
--- NOTE | 2017-11-19 18:52 | HP ---
DATE OF SERVICE: 11/19/2017 ADMITTING PHYSICIAN: Pedro Segovia M.D. HISTORY OF PRESENT ILLNESS: The patient is a 67-year-old male with a history of end-stage renal dise ase, currently undergoing dialysis and also has a history of type 1 diabetes mellitus, who presented to the emergency room complaining of chest pain. He fell approximately five days ago at dialysis, fr actured his right ninth and tenth rib. He states he is now in intractable pain with no remediation o f the pain despite oral pain medicines up to two Vicodin a day and up to 10 tramadol a day. He has a history of chronic pain. He most recently was hospitalized with cardiac decompensation with atherosclerotic coronary artery di sease, which is inoperable. He reports no fever, no nausea, vomiting, or diarrhea. He does report weakness at times. ALLERGIES: He has no known allergies. CURRENT MEDICATIONS: 1. Insulin. 2. Creon. 3. Calcium acetate. 4. Amlodipine. 5. Lisinopril. 6. Tramadol. PAST MEDICAL HISTORY: End-stage renal disease, type 1 diabetes mellitus, and pancreatic insufficienc y. PAST SURGICAL HISTORY: Positive for multiple orthopedic surgeries, cholecystectomy, splenectomy, lef t thoracentesis for left pleural effusion, and AV fistula for hemodialysis. SOCIAL AND PERSONAL HISTORY: He is single. He does not smoke. He has smoked in the past, nor does he drink alcohol. REVIEW OF SYSTEMS: Gastrointestinal: Negative. Genitourinary: Negative. Cardiovascular: Otherwi se negative. Respiratory: Positive as above. Neurologic: Otherwise negative. PHYSICAL EXAMINATION: HEENT: Normocephalic, atraumatic. Sclerae and conjunctivae clear. NECK: Supple, full range of motion, no masses. LUNGS: Reveal bilateral breath sounds. There is a large hematoma noted on the right lower back exte nding to the right axillary area. . There is extensive bruising noted in this area. There is no palpable crepitance otherwise noted at this time. HEART: Reveals regular rate and rhythm without murmurs, gallops or rubs. ABDOMEN: Soft. Bowel sounds are present and active. No hepatosplenomegaly is noted. EXTREMITIES: 1+ edema bilaterally. NEUROLOGIC: He is alert and oriented x3. He is able to move all extremities. He is fairly weak and not able to walk on his own. LABORATORY AND X-RAY FINDINGS: His hemoglobin is 10.3, hematocrit 31.6, white blood count 9.5. Sodi um 137, potassium 4.8, chloride 95, CO2 of 33, BUN 26, creatinine 3.1. CT scan of the chest shows a right-sided pleural effusion with a right lower lobe infiltrate and atelectasis. There appears to be a slightly larger effusion the left side, which is chronic and appears to be somewhat new. There is also moderate pericardial effusion otherwise noted at this time. IMPRESSION: 1. Rib fractures with chronic intractable pain. 2. End-stage renal disease. 3. Pleural effusions, some are new. 4. Pericardial effusion, it was definitely new. PLAN: 1. We will consult Anesthesia and Pain Management Service for further recommendations regarding his pain management. We will temporarily supply him with morphine to a dose; I think it is tolerable for him to help control pain. 2. Consult Pulmonology. 3. Consult Nephrology for further dialysis. Discussed the findings with the patient and he is in ag reement. We will go ahead and start on Rocephin due to atelectasis with him being at high risk for c atching possible pneumonia.
[2017-11-19] MEDS: cefTRIAXone\\ROCEPHIN 1 GM, Syringe 0.4 ML in Sterile Water 9.6 ML SLOW IVP SCH (20:11)
[2017-11-19] MEDS: Acetaminophen 1,000 MG in Premix Bag 1 BAG IVPB SCH (20:11)
[2017-11-19] MEDS: Lisinopril 10 MG TAB PO SCH (20:30)
[2017-11-19] MEDS: Insulin Regular 300 UNITS/3 ML VIAL SC PRN (21:45)
[2017-11-20] MEDS: Morphine 5 MG/ML SYRINGE SLOW IVP PRN ×6 (00:08→21:07)
[2017-11-20] MEDS: Acetaminophen 1,000 MG in Premix Bag 1 BAG IVPB SCH ×3 (02:03→14:52)
--- NOTE | 2017-11-20 06:24 | CON ---
DATE OF CONSULTATION: 11/19/2017 CONSULTING PHYSICIAN: Robert Frazier M.D. REQUESTING PHYSICIAN: Dr. Segovia. REASON FOR CONSULTATION: The need for maintenance hemodialysis. IMPRESSION: 1. End-stage renal disease, hemodialysis dependent, Thursday, , and Thursday. 2. Bilateral pleural effusion. 3. Rib fractures, status post mechanical fall. PLAN: 1. The patient to be dialyzed today and given the fact that this patient is frail. We will modify d ialysis to just focus on ultrafiltration. 2. Further management to be dependent on the clinical course. HISTORY OF PRESENT ILLNESS: A 67-year-old gentleman was dependent on hemodialysis on Thursday, , and Thursday schedule, who presented here because of intractable chest pain, status post generator mechanic al fall that resulted with right-sided rib fractures. Patient was being managed at home with some rajesh n medication, but this could not control the pain, so the patient presented to the hospital. Patient did dialyze Thursday, but I am told he still had significant bilateral pleural effusion as well as pericardiac effusion. The need to continue maintenance hemodialysis necessitated this consultation. PAST MEDICAL HISTORY: Significant for end-stage renal disease, hemodialysis dependent; coronary to ry disease; hypertension; osteomyelitis; diabetes mellitus. MEDICATIONS: Reviewed and as documented on [employer]. SOCIAL HISTORY: Remote tobacco use. No alcohol, no illicit drug use. ALLERGIES: No known drug allergies. FAMILY HISTORY: Not significantly related to the presenting illness. PHYSICAL EXAMINATION: GENERAL: Patient was found to be cachectic and severely malnourished noted with the following vital signs. VITAL SIGNS: Afebrile with temperature 98.2, pulse 86, respiratory rate 16, O2 sat of 94% with blood pressure 148/48. HEENT: Unremarkable with moist oral mucosa. NECK: Supple. No conjunctival injection or icterus. CARDIOVASCULAR SYSTEM: First and second heart sounds were heard. RESPIRATORY SYSTEM: Reveals some diminished breath sounds bilaterally. DIGESTIVE SYSTEM: Revealed a benign abdomen with positive bowel sounds. EXTREMITIES: No peripheral edema. SKIN: No new gross rash. EXTREMITIES: Showed bilateral lower extremity as well as upper extremity edema. IMPRESSION: A 67-year-old gentleman with end-stage renal disease, hemodialysis dependent, who presen colton here because of intractable pain, status post mechanical fall that resulted in rib fracture. Pat ient also noted to be severely malnourished, therefore we the diet of this patient and suppleme nt it with some Ensure. Thank you for this consultation. We will follow with you.
[2017-11-20] MEDS: Calcium Acetate 667 MG CAP PO SCH ×3 (07:31→16:44)
[2017-11-20] MEDS: Lisinopril 10 MG TAB PO SCH ×2 (07:33→21:08)
[2017-11-20] MEDS: Amlodipine 10 MG TAB PO SCH (07:34)
[2017-11-20] MEDS: Pancrelipase DR 12000 1 CAP PO SCH ×3 (07:35→16:46)
[2017-11-20] MEDS: Insulin Regular 300 UNITS/3 ML VIAL SC SCH ×4 (07:37→16:44)
--- NOTE | 2017-11-20 08:10 | PRG ---
DATE OF SERVICE: 11/20/2017 Mr. Ferrer states he is having a little bit less pain. He is able to sit up in bed. PHYSICAL EXAMINATION: VITAL SIGNS: BP 141/65, temperature 98.6. LUNGS: Reveal bilateral breath sounds. HEART: Reveals no murmur. ABDOMEN: Soft. IMPRESSION: 1. Bilateral rib fractures. 2. Bilateral pleural effusion. 3. Renal failure, chronic. PLAN: It appears the patient may be undergoing a thoracentesis by Dr. Martinez. This is yet to be co nfirmed. His pain is better controlled well. He will apparently receive dialysis today.
[2017-11-20] MEDS ORDERED: Amlodipine 10 MG TAB PO SCH (09:00)
--- NOTE | 2017-11-20 10:26 | PRG ---
DATE OF SERVICE: 11/20/2017 SUBJECTIVE: Mr. Ferrer is doing better today after dialysis yesterday. He is having no shortness of breath at this time. PHYSICAL EXAMINATION: VITAL SIGNS: Temperature is 98.6, pulse 76, respirations 20, O2 sat 100% on 2 liters, blood pressure 160/61. HEENT: Unremarkable. NECK: No JVD. LUNGS: Slightly diminished breath sounds at left base compared to right. Less pain on the right. CARDIAC: S1 and S2 regular. ABDOMEN: Soft. EXTREMITIES: No edema. ASSESSMENT: 1. Chronic left pleural effusion. 2. Right rib fractures with small pleural effusion there. 3. Small pericardial effusion. 4. Chronic renal failure requiring hemodialysis. PLAN: I told him at this time, I would prefer not to intervene on the left-sided effusion. He can g o home and we can follow this up in the office in a couple of weeks. I want to see what continued di alysis will do. He had skipped a couple of sessions and therefore I think that has affected the amou nt of volume on that side. I think treating the effusion will not result any differences; I would ex pect rapid reaccumulation.
--- NOTE | 2017-11-20 15:57 | PRG ---
DATE OF SERVICE: 11/20/2017 SUBJECTIVE: The patient was seen and examined, still complaining of pain, otherwise hemodynamically stable with blood pressure 144/76, afebrile. OBJECTIVE: HEENT: Unremarkable with moist oral mucosa. NECK: Supple. No conjunctival injection or icterus. CARDIOVASCULAR: First and second heart sounds were heard. RESPIRATORY: Clear to auscultation with diminished breath sounds at the bases. DIGESTIVE: Revealed a benign abdomen. EXTREMITIES: Showed improved peripheral edema. NEUROLOGIC: Alert and oriented. No lateralizing sign. GENERAL: Revealed a patient that is very cachectic. IMPRESSION: 1. Severe protein energy malnutrition. 2. End-stage renal disease, on hemodialysis. 3. Bilateral pleural effusion. 4. Rib fracture, status post mechanical fall. PLAN: 1. The patient to be dialyzed tomorrow. 2. Pain management per the primary team and the pain specialist. 3. Further management will be dependent on the clinical course.
[2017-11-20] MEDS: Insulin Detemir 100 UNITS/ML 10 UNITS in Pre-Filled Syringe 1 EACH SC SCH (16:43)
[2017-11-20] MEDS: Acetaminophen 500 MG TAB PO SCH (16:46)
[2017-11-20] MEDS: cefTRIAXone\\ROCEPHIN 1 GM, Syringe 0.4 ML in Sterile Water 9.6 ML SLOW IVP SCH (21:07)
[2017-11-21] MEDS: Acetaminophen 500 MG TAB PO SCH ×3 (00:04→12:13)
[2017-11-21] MEDS: Morphine 5 MG/ML SYRINGE SLOW IVP PRN ×5 (00:23→20:11)
[2017-11-21] MEDS: Insulin Regular 300 UNITS/3 ML VIAL SC PRN (05:54)
[2017-11-21] MEDS: Insulin Regular 300 UNITS/3 ML VIAL SC SCH ×3 (08:00→17:19)
[2017-11-21] MEDS: Pancrelipase DR 12000 1 CAP PO SCH ×3 (08:00→17:17)
[2017-11-21] MEDS: Calcium Acetate 667 MG CAP PO SCH ×3 (08:00→17:18)
[2017-11-21 10:25] LABS: HBSAg Index 0.54 S/CO (0-0.99); Hep B Surf Ag Non-Reactive S/CO (NonReactive)
[2017-11-21] MEDS: Amlodipine 10 MG TAB PO SCH (12:13)
[2017-11-21] MEDS: Lisinopril 10 MG TAB PO SCH ×2 (12:14→20:11)
--- NOTE | 2017-11-21 16:46 | EKG ---
Test Reason : Blood Pressure : / mmHG Vent. Rate : 092 BPM Atrial Rate : 092 BPM P-R Int : 168 ms QRS Dur : 156 ms QT Int : 426 ms P-R-T Axes : 060 101 012 degrees QTc Int : 526 ms Normal sinus rhythm with sinus arrhythmia Right bundle branch block Abnormal ECG Confirmed by ROSAMARIA AN ([id number]), science editor MARKO MCGUIRE ([id number]) on 11/21/2017 4:45:49 PM Referred By: Confirmed By:ROSAMARIA AN
[2017-11-21] MEDS: Insulin Detemir 100 UNITS/ML 10 UNITS in Pre-Filled Syringe 1 EACH SC SCH (17:24)
[2017-11-21] MEDS ORDERED: Acetaminophen 325 MG TAB PO PRN (18:00)
[2017-11-21] MEDS ORDERED: Ondansetron HCl/PF 4 MG/2 ML Vial SLOW IVP PRN (18:37)
[2017-11-21] MEDS ORDERED: Ondansetron ODT 4 MG TAB PO PRN (18:37)
[2017-11-21] MEDS ORDERED: Morphine 5 MG/ML SYRINGE SLOW IVP PRN (18:38)
[2017-11-21] MEDS ORDERED: Naloxone HCl 0.4 mg/ml Vial IVP PRN (18:39)
[2017-11-21] MEDS: cefTRIAXone\\ROCEPHIN 1 GM, Syringe 0.4 ML in Sterile Water 9.6 ML SLOW IVP SCH (20:10)
--- NOTE | 2017-11-21 21:15 | PRG ---
DATE OF SERVICE: 11/21/2017 SERVICE: Pulmonary Medicine. INTERVAL HISTORY: The patient is doing fine from a respiratory standpoint. He continues to have chest wall discomfort. It is localized to one spot. Previously, he took some medications and became hypersomnolent. It took some time for those medications to get out of his system before it is starting to make sense again. Otherwise, I have offered to control his pain in possibly a different way. He is happy with his current pain medications. He remains significantly volume overloaded. He does not have much dyspnea. PHYSICAL EXAMINATION: VITAL SIGNS: Afebrile, pulse 78, blood pressure 125/42, respirations 18, saturation 91% on 2 liters nasal cannula. GENERAL: The patient is awake and alert, in no apparent distress. LUNGS: Decent air entry. There is no prolonged expiratory phase or wheezing. HEART: Normal rate, regular. ABDOMEN: Soft, nontender, nondistended. Bowel sounds are positive. MUSCULOSKELETAL: No cyanosis or clubbing. There is 2-3+ pitting in the bilateral lower extremities. NEUROLOGIC: Grossly nonfocal. LABORATORY DATA: WBC 9.5, hemoglobin 10.3, platelets 310,000. Glucose 101-393. ASSESSMENT AND PLAN: 1. Chronic left-sided pleural effusion. 2. Right rib fractures with small pericardial effusion. 3. End-stage renal disease, on hemodialysis. We will see if a Lidoderm patch provides him with more analgesia to his focal area of rib discomfort without causing the heavy sedation. He will need to continue to be dialyzed until he returns to euvolemia. I will restart his nebulized medications scheduled for q.6 hours. Pulmonary Critical Care will continue to follow while the patient remains this location. JESSICA
[2017-11-22] MEDS: Morphine 5 MG/ML SYRINGE SLOW IVP PRN ×3 (05:45→17:57)
[2017-11-22] MEDS: Amlodipine 10 MG TAB PO SCH (08:17)
[2017-11-22] MEDS: Calcium Acetate 667 MG CAP PO SCH ×3 (08:18→17:45)
[2017-11-22] MEDS: Lidocaine 5% Patch TD SCH (08:18)
[2017-11-22] MEDS: Pancrelipase DR 12000 1 CAP PO SCH ×3 (08:18→17:45)
[2017-11-22] MEDS: Lisinopril 10 MG TAB PO SCH ×2 (08:18→20:51)
[2017-11-22] MEDS: Insulin Regular 300 UNITS/3 ML VIAL SC SCH ×3 (08:20→17:48)
[2017-11-22] MEDS ORDERED: HYDROcodone/Acetaminophen 7.5/325 mg Tablet PO SCH ×2 (14:00→14:45)
[2017-11-22] MEDS: HYDROcodone/Acetaminophen 7.5/325 mg Tablet PO SCH ×3 (14:46→22:29)
[2017-11-22] MEDS: Insulin Detemir 100 UNITS/ML 10 UNITS in Pre-Filled Syringe 1 EACH SC SCH (17:46)
--- NOTE | 2017-11-22 19:01 | PRG ---
DATE OF SERVICE: 11/22/2017 SUBJECTIVE: The patient is seen and examined. Events of yesterday noted where the patient cut short his treatment claiming to have hit his dry weight. The patient noted with the following vital signs . OBJECTIVE: VITAL SIGNS: Afebrile with temperature 98.3, pulse 97, respiratory rate 20, O2 sat 95, temperature 9 8%, blood pressure 135/54. HEENT: Unremarkable with moist oral mucosa. Neck is supple. No conjunctival injection or icterus. CARDIOVASCULAR: First and second heart sounds were heard. RESPIRATORY: Reveals absent breath sounds. EXTREMITIES: Showed peripheral edema. IMPRESSION: 1. End-stage renal disease, hemodialysis dependent. 2. Hypervolemia with pleural effusion and pericardial effusion. 3. Failure to thrive/severe protein energy malnutrition. PLAN: 1. The patient is on a Thursday, and Thursday schedule. However, we will reevaluate this pa tient tomorrow with a blood chemistry and if clinically indicated, we will go ahead and dialyze this patient tomorrow as opposed to waiting for Thursday to dialyze this patient. 2. Further management to be dependent on the clinical course.
--- NOTE | 2017-11-22 20:47 | PRG ---
DATE OF SERVICE: 11/22/2017 SERVICE: Pulmonary Medicine. INTERVAL HISTORY: The patient is doing really well from a respiratory standpoint. He is breathing c omfortably. He has been transitioned on to room air currently. He has a lot of discomfort associate d with cough or deep breathing. Outside of that though, he is feeling much improved. He has no shor tness of breath. He is not bringing anything up with the cough. He does not have any nausea, vomiti ng or diarrhea. PHYSICAL EXAMINATION: VITAL SIGNS: Afebrile, pulse 97, blood pressure 135/54, respirations 20, saturation 89% on 2-2 lit ers nasal cannula. GENERAL: Patient is awake, alert, no apparent distress. LUNGS: Decent air entry. There is no prolonged expiratory phase or wheezing present. HEART: Normal rate, regular. ABDOMEN: Soft, nontender, nondistended. Bowel sounds positive. MUSCULOSKELETAL: No cyanosis or clubbing. No pitting in the bilateral lower extremities. NEUROLOGIC: Grossly nonfocal. LABORATORY DATA: Blood sugars ranged from 90 to 330. ASSESSMENT: 1. Chronic left-sided pleural effusion. 2. Right rib fracture with small pericardial effusion. 3. End-stage renal disease, on hemodialysis. PLAN: We will continue supportive measures. Hopefully, as he gets dialyzed, returning euvolemia, he will no longer require oxygen. Pulmonary will continue to follow while remains inhouse and Dr. Melanie parker will resume care in the morning.
[2017-11-22] MEDS: Lidocaine Patch Removal TOP SCH (20:52)
[2017-11-22] MEDS: cefTRIAXone\\ROCEPHIN 1 GM, Syringe 0.4 ML in Sterile Water 9.6 ML SLOW IVP SCH (20:52)
[2017-11-23] MEDS: Morphine 5 MG/ML SYRINGE SLOW IVP PRN (03:52)
[2017-11-23 06:26] LABS: Albumin 3.3 g/dL (3.4-4.8); Anion Gap 19 mmol/L (10-20); BUN (Urea Nitrogen) 78 mg/dL (8.4-25.7); BUN/Creatinine Ratio 13.66; Calc. Creatinine Clearance 13 mL/min (70-130); Calcium 9.2 mg/dL (7.8-10.44); Carbon Dioxide 25 mmol/L (23-31); Chloride 96 mmol/L (98-107); Estimated GFR-MDRD 10; Phosphorus 7.3 mg/dL (2.3-4.7); Potassium 5.4 mmol/L (3.5-5.1); Sodium 135 mmol/L (136-145)
[2017-11-23 06:27] LABS: Glucose 22 mg/dL (80-115)
[2017-11-23] MEDS: HYDROcodone/Acetaminophen 7.5/325 mg Tablet PO SCH ×7 (07:11→21:18)
--- NOTE | 2017-11-23 08:07 | PRG ---
DATE OF SERVICE: 11/23/2017 Mr. Ferrer is doing well. He is having less pain. He states his oral pain medicines seems to be abl e to control his pain. PHYSICAL EXAMINATION: VITAL SIGNS: Temperature 97.8, BP 113/50, O2 sats 93% on 3 liters. LUNGS: Reveal bilateral breath sounds. HEART: Reveals no murmur. LABORATORY: Sugars are adequately controlled, matter of fact, sometimes too low. IMPRESSION: 1. Chronic obstructive pulmonary disease associated with rib fractures, chronic acute pain. 2. Acute renal failure. PLAN: The patient seems to be progressing, possibly could look at discharging him tomorrow with pain management.
[2017-11-23] MEDS: Calcium Acetate 667 MG CAP PO SCH ×3 (08:17→17:14)
[2017-11-23] MEDS: Insulin Regular 300 UNITS/3 ML VIAL SC SCH ×3 (08:18→17:20)
[2017-11-23] MEDS: Lisinopril 10 MG TAB PO SCH ×2 (08:20→21:09)
[2017-11-23] MEDS: Lidocaine 5% Patch TD SCH (08:21)
[2017-11-23] MEDS: Pancrelipase DR 12000 1 CAP PO SCH ×3 (09:00→17:20)
--- NOTE | 2017-11-23 09:05 | PRG ---
DATE OF SERVICE: 11/23/2017 SUBJECTIVE: The patient says he is doing okay. OBJECTIVE: VITAL SIGNS: Temperature is 97.8, pulse 78, blood pressure 132/50, O2 sat 93% on 2.5 liters. HEENT: Unremarkable. NECK: No JVD. CHEST: Better air movement in left chest, still has some hematoma in the right chest where he fell. CARDIAC: S1, S2 regular. ABDOMEN: Soft. EXTREMITIES: Trace edema. LABORATORY DATA: Sodium 135, potassium 5.4, chloride 96, CO2 of 25, BUN 70, creatinine 5.7, glucose was measured less than 35 and that is probably erroneous. ASSESSMENT: 1. Chronic left pleural effusion. 2. Status post fall to the right side with a hematoma in the right chest. 3. Chronic renal failure. PLAN: 1. Continue hemodialysis. 2. No plans to intervene left effusion. I would agree that he can be discharged by tomorrow.
[2017-11-23] MEDS: Amlodipine 10 MG TAB PO SCH (13:16)
[2017-11-23] MEDS: Insulin Detemir 100 UNITS/ML 10 UNITS in Pre-Filled Syringe 1 EACH SC SCH (17:19)
[2017-11-23] MEDS: Lidocaine Patch Removal TOP SCH (20:46)
[2017-11-23] MEDS: cefTRIAXone\\ROCEPHIN 1 GM, Syringe 0.4 ML in Sterile Water 9.6 ML SLOW IVP SCH (21:09)
[2017-11-24] MEDS: HYDROcodone/Acetaminophen 7.5/325 mg Tablet PO SCH ×6 (06:20→23:55)
[2017-11-24] MEDS: Calcium Acetate 667 MG CAP PO SCH ×3 (08:52→17:25)
[2017-11-24] MEDS: Insulin Regular 300 UNITS/3 ML VIAL SC SCH ×3 (08:52→17:26)
[2017-11-24] MEDS: Pancrelipase DR 12000 1 CAP PO SCH ×3 (08:52→17:25)
[2017-11-24] MEDS: Lisinopril 10 MG TAB PO SCH ×2 (08:53→20:33)
[2017-11-24] MEDS: Amlodipine 10 MG TAB PO SCH (09:00)
--- NOTE | 2017-11-24 09:10 | PRG ---
DATE OF SERVICE: 11/24/2017 SUBJECTIVE: The patient is complaining of leg cramping in his right side cramping. He wants to stay in the hospital for another day. OBJECTIVE: VITAL SIGNS: Temperature 97.5, pulse 89, blood pressure 122/50, O2 saturation is in the low 90s on 3 liters. HEENT: Unremarkable. NECK: No JVD. LUNGS: Diminished breath sounds in the left base, right side, diminished breath sounds at the base. CARDIAC: S1 and S2 regular. ABDOMEN: Soft. EXTREMITIES: No edema. ASSESSMENT: 1. Chronic renal failure requiring hemodialysis. 2. Status post fall with right-sided hematoma. 3. Chronic renal failure. 4. Chronic left pleural effusion. PLAN: Continue hemodialysis. Hopefully, he can be discharged tomorrow if he has a good day today.
--- NOTE | 2017-11-24 12:35 | PRG ---
DATE OF SERVICE: 11/23/2017 SUBJECTIVE: The patient was seen and examined today, did complain of . OBJECTIVE: VITAL SIGNS: Noted with the following vital signs: Afebrile, pulse 79, respiratory rate 18, 02 sat 9 2%, blood pressure 114/47. The patient . HEENT: Unremarkable . CARDIOVASCULAR: First and second heart sounds heard. . Specific gravity . IMPRESSION/PLAN: This is a 70-year-old gentleman .
--- NOTE | 2017-11-24 12:58 | PRG ---
DATE OF SERVICE: 11/24/2017 SUBJECTIVE: Mr. Ferrer is seen to be doing better today. He is undergoing dialysis. Otherwise, no other medical complaints. PHYSICAL EXAMINATION: VITAL SIGNS: Temperature 97.5, BP 122/50. LUNGS: Reveal bilateral breath sounds decreased in the left side. HEART: Reveals no murmur. EXTREMITIES: Shows minimal edema. IMPRESSION: 1. Chronic renal failure. 2. Status post fall with right rib fractures, pain seems to be controlled. PLAN: I discussed the findings with the patient. He is agreeable to possible discharge tomorrow, fe els like he can possibly do well enough at home at this time.
[2017-11-24] MEDS: Lidocaine 5% Patch TD SCH (13:07)
[2017-11-24] MEDS: Insulin Detemir 100 UNITS/ML 10 UNITS in Pre-Filled Syringe 1 EACH SC SCH (17:26)
[2017-11-24] MEDS: Lidocaine Patch Removal TOP SCH (20:32)
[2017-11-24] MEDS: cefTRIAXone\\ROCEPHIN 1 GM, Syringe 0.4 ML in Sterile Water 9.6 ML SLOW IVP SCH (20:32)
[2017-11-24] MEDS: Insulin Regular 300 UNITS/3 ML VIAL SC PRN (20:34)
[2017-11-25] MEDS: HYDROcodone/Acetaminophen 7.5/325 mg Tablet PO SCH ×4 (05:26→13:42)
[2017-11-25] MEDS ORDERED: Amlodipine 10 MG TAB PO SCH (05:43)
--- NOTE | 2017-11-25 06:16 | PRG ---
DATE OF SERVICE: 11/24/2017 SUBJECTIVE: Mr. Pedro Ferrer was seen and examined at dialysis and still complaining of pain and h aving some myoclonic jerks. PHYSICAL EXAMINATION: VITAL SIGNS: Afebrile with temperature 98, pulse 78, respiratory rate 18, O2 sat 95%, blood pressure 118/44. HEENT: Unremarkable. CARDIOVASCULAR: First and second heart sounds were heard. RESPIRATORY SYSTEM: Revealed diminished breath sounds. DIGESTIVE SYSTEM: Revealed a benign abdomen. EXTREMITIES: Showed peripheral edema. LABORATORY INVESTIGATIONS: Significant for potassium of 5.4 the day before with a creatinine of 5.71 . IMPRESSION: 1. End-stage renal disease, hemodialysis dependent, Thursday, , and Thursday schedule. 2. Hyperkalemia related to problem #1. 3. Chest pain, status post rib fractures from mechanical fall. 4. Myoclonic jerks, likely in the context of uremia in addition to the presence of narcotic medicati ons. 5. Hypoglycemia, which seems to be improving. PLAN: 1. Medication adjustment will change the patient's current dose of amlodipine from 30 mg to 10 mg. 2. We seriously recommend discontinuation of morphine and in place of this use fentanyl patch in thi s patient given the renal failure. 3. Hemodialysis with ultrafiltration as tolerated by hemodynamics. 4. The patient's condition and prognosis still remains very poor. We will continue with current reg ular diet without much of any dietary adjustments. 5. Further management to be dependent on the clinical course.
[2017-11-25] MEDS: Calcium Acetate 667 MG CAP PO SCH ×2 (08:15→13:36)
[2017-11-25] MEDS: Pancrelipase DR 12000 1 CAP PO SCH ×2 (08:16→13:36)
[2017-11-25] MEDS: Lisinopril 10 MG TAB PO SCH (08:18)
[2017-11-25] MEDS: Lidocaine 5% Patch TD SCH (08:19)
[2017-11-25] MEDS: Insulin Regular 300 UNITS/3 ML VIAL SC SCH ×2 (08:20→12:06)
[2017-11-25 08:40] VITALS: BP 136/54; TEMP 98.3
[2017-11-25] MEDS: Morphine 5 MG/ML SYRINGE SLOW IVP PRN (09:48)
--- NOTE | 2017-11-25 10:39 | PRG ---
DATE OF SERVICE: 11/25/2017 SUBJECTIVE: Mr. Ferrer is doing better, less pain. He has completed dialysis yesterday. He is stil l having some shortness of breath due to COPD. PHYSICAL EXAMINATION: VITAL SIGNS: Blood pressure 118/44, pulse 89 and regular. LUNGS: Reveal some breath sounds on the right and left side. HEART: Reveals no murmur. IMPRESSION: 1. Fractured ribs, intractable pain. 2. Renal failure. PLAN: The patient can be safely discharged home today. He will follow up with me in 1-2 weeks.
[2017-11-25] MEDS: Insulin Regular 300 UNITS/3 ML VIAL SC PRN (12:12)
== END 2017-11-25 15:25 | disposition home or self-care (01) | DRG 183 ==
LOC: ERS 18:37 → T4-A 23:00
PROVIDERS: ADMIT Family Medicine; ATTEND Family Medicine
PROC: 5A1D70Z Performance of Urinary Filtration, Intermittent, Less than 6 Hours Per Day (ICD-10-PCS; principal; 2017-11-19)
PROC: 5A1D70Z Performance of Urinary Filtration, Intermittent, Less than 6 Hours Per Day (ICD-10-PCS; 2017-11-21)
PROC: 5A1D70Z Performance of Urinary Filtration, Intermittent, Less than 6 Hours Per Day (ICD-10-PCS; 2017-11-24)
DX: S22.41XA Multiple fractures of ribs, right side, initial encounter for closed fracture (principal); N18.6 End stage renal disease; E43 Unspecified severe protein-calorie malnutrition; E10.22 Type 1 diabetes mellitus with diabetic chronic kidney disease; I31.3 Pericardial effusion (noninflammatory); J90 Pleural effusion, not elsewhere classified; E10.649 Type 1 diabetes mellitus with hypoglycemia without coma; E87.5 Hyperkalemia; J44.9 Chronic obstructive pulmonary disease, unspecified; Z68.22 Body mass index [BMI] 22.0-22.9, adult; Z99.2 Dependence on renal dialysis; Z87.891 Personal history of nicotine dependence; Z79.4 Long term (current) use of insulin; Z79.899 Other long term (current) drug therapy; W18.30XA Fall on same level, unspecified, initial encounter
CPT/HCPCS: 36415; 36416; 71045; 71275; 80053; 80069; 82553; 83880; 84484; 85025; 87340; 90935; 93005; 94640; 94760; 96372; 96374; 96375; 96376; J2270; A4216; G0257; G8978-GP-CI; G8979-GP-CI; G8980-GP-CI; J0131; J0696; J1170; J1815; J7611; J7620; Q0162

== ENCOUNTER 2017-12-01 14:49 | Outpatient (CLI) | payer MEDICARE, OTHER ==
--- NOTE | 2017-12-01 15:40 | RAD ---
RIBS RIGHT GREATER THAN OR EQUAL TWO VIEW WITH PA CHEST X-RAY 12/01/17 HISTORY: S22.41XG - closed fracture multiple ribs. FINDINGS: There are multiple right sided rib fractures. No pneumothorax. IMPRESSION: Right brachiocephalic vein stent is present. Calcified granuloma right lung apex is similar. Severe d egenerative disease of the right glenohumeral joint. Heart size is enlarged. Layering left effusion. IMPRESSION: 1. No significant interval healing right sided rib fractures. 2. Large left effusion. 3. Small right effusion. 4. Calcified granuloma right lung apex. POS: H
== END 2017-12-01 14:50 | disposition home or self-care (01) ==
LOC: SCSRAD 14:49
PROVIDERS: ATTEND Family Medicine
DX: S22.41XG Multiple fractures of ribs, right side, subsequent encounter for fracture with delayed healing (principal); J90 Pleural effusion, not elsewhere classified; J84.10 Pulmonary fibrosis, unspecified

== ENCOUNTER 2017-12-15 18:28 | Emergency (ER) | payer MEDICARE, OTHER ==
[2017-12-15] MEDS ORDERED: Ondansetron PF 4 MG/2 ML Vial ONE ×2 (20:27→21:05)
[2017-12-15 20:31] LABS: ALT (SGPT) 14 U/L (8-55); AST (SGOT) 30 U/L (5-34); Albumin 2.7 g/dL (3.4-4.8); Alkaline Phosphatase 95 U/L (40-150); Anion Gap 19 mmol/L (10-20); BUN (Urea Nitrogen) 28 mg/dL (8.4-25.7); Bilirubin, Total 0.3 mg/dL (0.2-1.2); CK (CPK) 118 U/L (30-200); Calc. Creatinine Clearance 0 mL/min (70-130); Calcium 7.9 mg/dL (7.8-10.44); Carbon Dioxide 27 mmol/L (23-31); Chloride 94 mmol/L (98-107); Estimated GFR-MDRD 22; Globulin 3.6 g/dL (2.4-3.5); Glucose 190 mg/dL (80-115); Potassium 3.8 mmol/L (3.5-5.1); Protein, Total 6.3 g/dL (5.8-8.1); Sodium 136 mmol/L (136-145)
[2017-12-15 20:47] LABS: #Basophils 0.1 thou/uL (0.0-0.2); #Lymphocytes 0.7 thou/uL (1.20-3.40); #Monocytes 0.1 thou/uL (0.11-0.59); #Neutrophils 9.4 thou/uL (1.40-6.50); %Basophils 0.6 % (0.0-1.0); %Lymphocytes 6.5 % (21.0-51.0); %Monocytes 0.7 % (0.0-10.0); %Neutrophils 92.2 % (42.0-75.0); Anisocytosis SLIGHT = 6-15 cells (100X) (0-5/hpf); Band 5 % (5-11); Eosinophils 1 % (0-10); Hemoglobin 9.4 g/dL (14.0-18.0); Hypochromia SLIGHT = 6-15 cells (100X) (0-5/hpf); Large Platelets SLIGHT; Lymphocytes 4 % (21-51); MDiff Complete? YES; Macrocytosis SLIGHT = 6-15 cells (100X) (0-5/hpf); Mean Corpuscular HGB CONC 32.2 g/dL (32.0-36.0); Mean Corpuscular Hemoglobin 32.3 pg (27.0-31.0); Mean Platelet Volume 8.6 fL (7.4-10.4); Monocytes 1 % (0-10); Neutrophil 89 % (42-75); Ovalocytes SLIGHT = 2-5 cells (100X) (0-1/hpf); PLT Morphology Comment Appears Adequate; Platelet Count 241 thou/uL (130-400); Polychromasia SLIGHT = 2-3 cells (100X) (0-2/hpf); RBC Distribution Width 14.1 % (11.5-14.5); Stomatocytes SLIGHT = 2-5 cells (100X) (0-1/hpf); Target Cells SLIGHT = 2-5 cells (100X) (0-1/hpf); White Blood Cell (WBC) Count 10.2 thou/uL (4.8-10.8)
[2017-12-15 20:48] LABS: Lipase Less than 4 U/L (8-78)
== END 2017-12-15 22:25 | disposition home or self-care (01) ==
LOC: SCSER 18:28
DX: R11.2 Nausea with vomiting, unspecified (principal); R19.7 Diarrhea, unspecified; E10.9 Type 1 diabetes mellitus without complications; I11.0 Hypertensive heart disease with heart failure; I50.9 Heart failure, unspecified; J44.9 Chronic obstructive pulmonary disease, unspecified; Z87.891 Personal history of nicotine dependence; Z79.899 Other long term (current) drug therapy
CPT/HCPCS: 80053; 82550; 83690; 85025; J2405

== ENCOUNTER 2017-12-16 17:22 | Inpatient (IN) | payer MEDICARE, OTHER ==
[2017-12-16 19:34] LABS: #Lymphocytes 0.9 thou/uL (1.20-3.40); #Neutrophils 8.3 thou/uL (1.40-6.50); %Basophils 0.1 % (0.0-1.0); %Eosinophils 0.3 % (0.0-10.0); %Lymphocytes 9.8 % (21.0-51.0); %Monocytes 0.3 % (0.0-10.0); %Neutrophils 89.5 % (42.0-75.0); Hemoglobin 9.5 g/dL (14.0-18.0); Mean Corpuscular HGB CONC 31.6 g/dL (32.0-36.0); Mean Corpuscular Hemoglobin 33.4 pg (27.0-31.0); Mean Platelet Volume 9.1 fL (7.4-10.4); Platelet Count 273 thou/uL (130-400); RBC Distribution Width 14.1 % (11.5-14.5); Red Blood Cell (RBC) Count 2.85 mill/uL (4.70-6.10); White Blood Cell (WBC) Count 9.3 thou/uL (4.8-10.8)
[2017-12-16 19:58] LABS: ALT (SGPT) 9 U/L (8-55); AST (SGOT) 27 U/L (5-34); Albumin 2.3 g/dL (3.4-4.8); Alkaline Phosphatase 96 U/L (40-150); Anion Gap 15 mmol/L (10-20); BUN (Urea Nitrogen) 42 mg/dL (8.4-25.7); Bilirubin, Total 0.3 mg/dL (0.2-1.2); Calc. Creatinine Clearance 0 mL/min (70-130); Calcium 7.3 mg/dL (7.8-10.44); Carbon Dioxide 27 mmol/L (23-31); Chloride 95 mmol/L (98-107); Estimated GFR-MDRD 17; Globulin 3.3 g/dL (2.4-3.5); Glucose 219 mg/dL (80-115); Potassium 4.3 mmol/L (3.5-5.1); Protein, Total 5.6 g/dL (5.8-8.1); Sodium 133 mmol/L (136-145)
[2017-12-16 20:03] LABS: Troponin I 0.114 ng/mL (< 0.028)
[2017-12-16] MEDS ORDERED: Ondansetron HCl/PF 4 MG/2 ML Vial ONE (20:08)
--- NOTE | 2017-12-16 23:24 | CON ---
DATE OF CONSULTATION: 12/16/2017 CONSULTING PHYSICIAN: Robert Frazier M.D. REQUESTING PHYSICIAN: ER physician. REASON FOR CONSULTATION: Need for maintenance hemodialysis. IMPRESSION: 1. End-stage renal disease, hemodialysis dependent, Thursday, , and Thursday. 2. Nausea, vomiting, and diarrhea, query cause. 3. Chest pain in the context of a rib fracture. 4. Failure to thrive/severe malnutrition. PLAN: 1. The patient to be dialyzed in accordance with his schedule Thursday, and Thursday with ul trafiltration as tolerated by hemodynamics. 2. Consider appetite stimulants. 3. We will recommend regular diet with this patient who is severely malnourished. 4. Once an infectious process has been ruled out as being a causative of this diarrhea, the patient can benefit from symptomatic treatment of the diarrhea with Imodium. HISTORY OF PRESENT ILLNESS: History is that of 67-year-old gentleman with end-stage renal disease wh o has been in and out of hospital recently, who presented here today with nausea, vomiting, and diarr hea. The patient has not been able to eat much of anything and on presentation was noted to be ill l ooking. The patient this week was in the process of being admitted to inpatient rehabilitation; cedeñoroyce wick, because of the presence of this acute issue of nausea, vomiting, and diarrhea, this admission wa s declined. Patient denies any bloody stool. Denies any hematemesis. Past medical history, family history and social history remains the same. Please for the details, re logan to the recent hospitalization. REVIEW OF SYSTEMS: As documented in the body of the history, otherwise all other systems were review ed and found not to be significantly related to presenting illness. LABORATORY INVESTIGATION: Showed a creatinine of 3.52, BUN of 133, hemoglobin 9.5. PHYSICAL EXAMINATION: GENERAL: The patient was found to be ill looking and severely malnourished, hemodynamically stable, afebrile. HEENT: Unremarkable. CARDIOVASCULAR SYSTEM: First and second heart sounds were heard. RESPIRATORY SYSTEM: Clear to auscultation. DIGESTIVE SYSTEM: Revealed a benign abdomen. EXTREMITIES: Showed peripheral edema. NEUROLOGIC: Alert, oriented. No lateralizing signs. LYMPHATICS: No peripheral lymphadenopathy. SUMMARY: A 67-year-old gentleman with end-stage renal disease who presented here with failure to thr ravinder, nausea, vomiting, diarrhea, and severe malnutrition. Thank you for this consultation. We will follow with you.
[2017-12-16 23:28] VITALS: BMI 21.4
[2017-12-16] MEDS ORDERED: HYDROcodone/Acetaminophen 7.5/325 mg Tablet PO PRN ×2 (23:36)
[2017-12-16] MEDS ORDERED: Dextrose 5% in Water 1,000 ML IV PRN (23:37)
[2017-12-16] MEDS ORDERED: Insulin Regular 300 UNITS/3 ML VIAL SC PRN (23:37)
[2017-12-17 00:01] LABS: Troponin I 0.151 ng/mL (< 0.028)
[2017-12-17] MEDS: Morphine 5 MG/ML SYRINGE SLOW IVP PRN ×3 (00:01→09:20)
[2017-12-17 02:24] LABS: Troponin I 0.119 ng/mL (< 0.028)
[2017-12-17] MEDS ORDERED: Acetaminophen 325 MG TAB PO PRN (07:56)
[2017-12-17] MEDS ORDERED: Calcium Acetate 667 MG CAP PO SCH (08:00)
[2017-12-17] MEDS ORDERED: Insulin Regular 300 UNITS/3 ML VIAL SC SCH (08:00)
[2017-12-17] MEDS ORDERED: Pancrelipase DR 12000 1 CAP PO SCH ×2 (08:00)
--- NOTE | 2017-12-17 08:55 | HP ---
ADMITTING PHYSICIAN: Pedro Segovia M.D. HISTORY OF PRESENT ILLNESS: The patient is a 67-year-old male with known history of end-stage renal disease, COPD, inoperable, non-procedural atherosclerotic coronary artery disease and he has also had a recent history of rib fracture with severe pain. The patient has been complaining of recurrent vo miting and diarrhea for many days. He was actually seen here in the ER and dismissed approximately 3 days ago. He contacted my office. He has not tolerated any oral intake, not able to control his natasha wel movements. He has reported no blood per bowel movement. He reports chronic pain, increasing rajesh n to his right flank due to previous rib fracture. He was seen and evaluated in the ER, results showed an elevated BNP, as well as mild elevated troponi ns. Otherwise, no other remarkable findings were noted. The patient was admitted to observation. Nephrology consult has been obtained. I have spoken with h is family. It is noted the patient is a deteriorating rapidly and they are probably not able to prov gerardo as much healthcare at home. He has actually been trying to be put in rehab, this has been delaye d due to the above noted medical problems. Otherwise, no other medical complaints are noted except for vomiting, diarrhea, discomfort in his rig ht flank area from his rib fractures. ALLERGIES: He has no known allergies. CURRENT MEDICATIONS: Insulin, Creon, calcium acetate, amlodipine, lisinopril and [place]. PAST SURGICAL HISTORY: Multiple orthopedic surgeries, cholecystectomy, splenectomy, AV fistula for d ialysis. PAST MEDICAL HISTORY: End-stage renal disease, type 1 diabetes mellitus, pancreatic insufficiency. REVIEW OF SYSTEMS: Noncontributory. FAMILY HISTORY: Noncontributory. PHYSICAL EXAMINATION: VITAL SIGNS: Temperature 98.8, pulse 75, respirations 20, O2 sats 94, BP 140/65. GENERAL: This is an ill-appearing male appears to be in mild distress. He is currently on dialysis. LUNGS: Reveal bilateral breath sounds, although diminished to the left side. HEART: Reveals a regular rate and rhythm without murmur, gallops or rubs. ABDOMEN: Soft. There is no evidence of rebound or guarding. Bowel sounds are present and active. There is no hepatomegaly noted. There is no evidence rebound or guarding. EXTREMITIES: Showed trace edema bilaterally. NEUROLOGIC: He is alert and oriented x3. LABORATORY: Hemoglobin is 9.5, hematocrit 30.1, white blood count 9.3, sodium 133, potassium 4.3, BU N 42, creatinine 3.52. IMPRESSION: 1. Recurrent nausea, vomiting of unknown etiology. 2. Recurrent pain. 3. End-stage renal disease. 4. Generalized wasting of unknown etiology. PLAN: 1. Will get GI consult for further recommendations regarding his gastroenterological issues. 2. Also, consult pain management team for further treatment recommendations regarding his pain. 3. We will have to have a discussion with the patient and the family regarding his disposition in e future. I am somewhat concerned about his ability to live at home. The patient has been notified of this as a problem.
[2017-12-17] MEDS ORDERED: Amlodipine 10 MG TAB PO SCH (09:00)
[2017-12-17] MEDS ORDERED: Lisinopril 10 MG TAB PO SCH (09:00)
[2017-12-17] MEDS ORDERED: Naloxone HCl 0.4 mg/ml Vial IV PRN (11:52)
[2017-12-17] MEDS: Lisinopril 10 MG TAB PO SCH ×2 (11:56→21:11)
[2017-12-17] MEDS: Amlodipine 10 MG TAB PO SCH (11:57)
[2017-12-17] MEDS: Pancrelipase DR 12000 1 CAP PO SCH ×3 (11:58→18:26)
[2017-12-17] MEDS: Calcium Acetate 667 MG CAP PO SCH ×3 (11:59→18:27)
[2017-12-17] MEDS: Insulin Regular 300 UNITS/3 ML VIAL SC SCH ×2 (12:05→21:19)
[2017-12-17] MEDS: Acetaminophen 325 MG TAB PO SCH ×3 (12:57→23:46)
[2017-12-17] MEDS ORDERED: HYDROcodone/Acetaminophen 7.5/325 mg Tablet PO SCH ×2 (14:00)
[2017-12-17] MEDS ORDERED: Insulin Detemir 100 UNITS/ML 10 UNITS in Pre-Filled Syringe 1 EACH SC SCH (17:00)
[2017-12-17] MEDS ORDERED: INSULIN GLARGINE 10 UNIT SQ SCH (17:00)
[2017-12-17] MEDS: HYDROmorphone 10 mg/100 ml CADD IV PRN (18:53)
--- NOTE | 2017-12-17 22:08 | PRG ---
DATE OF SERVICE: 12/17/2017 SUBJECTIVE: The patient is seen and examined, complaining of pain overlying the chest area. PHYSICAL EXAMINATION: VITAL SIGNS: Afebrile with temperature 98.7, pulse 82, respiratory rate of 19-24, O2 saturation 100% with blood pressure 124/60. HEENT: Unremarkable. Moist oral mucosa. NECK: Supple. CARDIOVASCULAR: First and second heart sounds were heard. RESPIRATORY: Clear to auscultation anteriorly. DIGESTIVE: Revealed a benign abdomen. EXTREMITIES: Showed peripheral edema. SKIN: No new gross rash. LYMPHATICS: No peripheral lymphadenopathy. IMPRESSION: 1. End-stage renal disease on hemodialysis. 2. Severe malnutrition with evidence of failure to thrive. 3. Anemia of chronic kidney disease. 4. Further management to be dependent on the clinical course.
[2017-12-18] MEDS: Dextrose 50% Abboject 50 ML SYRINGE IVP PRN ×2 (05:08→05:32)
[2017-12-18] MEDS: Acetaminophen 325 MG TAB PO SCH ×3 (05:45→18:24)
[2017-12-18 05:55] LABS: ALT (SGPT) 11 U/L (8-55); AST (SGOT) 31 U/L (5-34); Albumin 2.4 g/dL (3.4-4.8); Alkaline Phosphatase 98 U/L (40-150); Anion Gap 14 mmol/L (10-20); BUN (Urea Nitrogen) 39 mg/dL (8.4-25.7); Bilirubin, Total 0.2 mg/dL (0.2-1.2); Calc. Creatinine Clearance 25 mL/min (70-130); Calcium 7.8 mg/dL (7.8-10.44); Carbon Dioxide 29 mmol/L (23-31); Chloride 97 mmol/L (98-107); Estimated GFR-MDRD 22; Globulin 3.6 g/dL (2.4-3.5); Glucose 78 mg/dL (80-115); Potassium 3.9 mmol/L (3.5-5.1); Sodium 136 mmol/L (136-145)
--- NOTE | 2017-12-18 06:18 | CON ---
DATE OF CONSULTATION: 12/17/2017 REFERRING DOCTOR: Pedro Segovia M.D. REASON FOR CONSULTATION: Recurrent nausea and vomiting, and also diarrhea. HISTORY OF PRESENT ILLNESS: Mr. Pedro Ferrer is a very fragile looking 67-year-old male who is known to me from before. The patient is known to have chronic kidney disease and has dialysis 3 times a week. [facility] [place] [facility]. The patient was referred to me in 2014 for the colonoscopy for colon cancer screening, before h e can get on the transplant list. The patient underwent colonoscopy, polypectomy, and also was found to have severe colonic diverticulosis. The patient had not seen me over the last, I believe, 3 year s. The patient's kidney transplant was canceled because of onset of COPD, which has been pretty kwame re. He does see Dr. Martinez, his compliance assistant. The patient apparently fell down and broke his righ t ribs 6 weeks ago. He still has some pain over the right side of the chest. The patient also has t aken some antibiotics at this time. He does not know the name of the antibiotics. The patient devel oped nausea with vomiting and also diarrhea a couple of weeks ago. Whatever he eats or drinks, it ke eps coming up. He has some painful swallowing, which is mild. He has dysphagia. He is able t o swallow, the food does not really hang at the esophagus. The patient also had diarrhea over the st couple of years. The diarrhea does not appear to be very severe, as he has maximum of 2 stools pe r day and the stools are liquid. The patient has had no stool today and he has had nothing to eat to day. Since the admission, he has seen the speech pathologist and had a modified barium swallow. As per the nurses, they reported some aspiration and recommended full-liquid diet. Initially, a plan wa s being made for an EGD today, but unfortunately he had some swallow study an hour ago and an EGD cou ld not be done today. The patient has no relevant history. ALLERGIES: None. MEDICAL ILLNESSES: 1. Hypertension. 2. Chronic obstructive pulmonary disease. 3. Diabetes mellitus. 4. Chronic kidney disease on dialysis. 5. History of pancreatic insufficiency. SURGERIES: 1. AV fistula placement. 2. Splenectomy. 3. Cholecystectomy. 4. Multiple orthopedic surgeries. 5. AV fistula placement. MEDICATIONS: List reviewed. REVIEW OF SYSTEMS: System review remarkable for chest pain which is on right side of the chest and a lso he has mild painful swallowing. He has chronic cough, coughing up thick mucoid expectoration. N o hemoptysis. PHYSICAL EXAMINATION: GENERAL: He is very fragile looking, elderly white male, appears comfortable. He is in no acute dis tress. He is mildly short-winded. VITAL SIGNS: Afebrile, pulse is 82, blood pressure 143/64. NECK: Supple. No adenitis or thyromegaly noted. CARDIOVASCULAR SYSTEM: First and second heart sounds normal. LUNGS: Right lung is very clear, does not have any wheezing. The left side he had expiratory air en try, is at the base and also some crepitations heard. ABDOMEN: Soft. Abdomen is nondistended. Abdomen is minimally tender over the epigastric area. The re is no rebound or guarding. Bowel sounds normal. EXTREMITIES: Reveal no edema. LABORATORY DATA: CBC shows WBC 9300, hemoglobin is 9.5, hematocrit 30.1, MCV 106, platelet count 273 ,000, polymorphs 89, and lymphocytes 9. Serum chemistries: Glucose is 186. CPK 2. Troponin 0.109. CLINICAL IMPRESSION: A 67-year-old male with chronic kidney disease on dialysis. He prese nts with nausea and vomiting and diarrhea. He is unable to keep anything down over the last couple o f years. Whatever eats or drinks, keeps is coming out. He also has been having diarrhea, the diarrh ea appears to be mild. He has history of recent antibiotic intake about six weeks ago. As per the [facility] pathologist, he also has had some aspiration during the swallow study. RECOMMENDATION: 1. Full-liquid diet. 2. EGD tomorrow morning and I will make further recommendations after EGD.
[2017-12-18] MEDS ORDERED: Dextrose 50% Abboject 50 ML SYRINGE ONE ×2 (08:10→09:00)
[2017-12-18] MEDS ORDERED: Lidocaine Viscous Sol 2% 15 ml UD Cup ONE (08:12)
[2017-12-18] MEDS ORDERED: Dextrose 5% in Water 1,000 ML IV SCH (09:15)
[2017-12-18] MEDS: Calcium Acetate 667 MG CAP PO SCH ×3 (09:28→18:24)
[2017-12-18] MEDS: traMADol HCl 50 MG TAB PO PRN (09:28)
[2017-12-18] MEDS: Pancrelipase DR 12000 1 CAP PO SCH ×3 (09:29→18:24)
[2017-12-18] MEDS: Lisinopril 10 MG TAB PO SCH ×2 (09:29→21:23)
[2017-12-18] MEDS: Amlodipine 10 MG TAB PO SCH (09:30)
[2017-12-18] MEDS: HYDROmorphone 10 mg/100 ml CADD IV PRN (10:21)
--- NOTE | 2017-12-18 11:26 | PRG ---
DATE OF SERVICE: 12/18/2017 HISTORY OF PRESENT ILLNESS: This is a 67-year-old male hospitalized with nausea, vomiting and diarrhea over the last couple of weeks. The patient was scheduled to have an EGD. He was taken to day surgery this morning. Apparently he has had hypoglycemic this morning with a blood sugar of 34. In day surgery again, he had some hypoglycemia, blood sugar was done again. The blood sugar was 27 mg percent. He was given D50 2 ampules and also on IV definitively. Blood sugar came to 104. The patient has had no diarrhea since admission. He has had some nausea, vomiting. He tolerated full liquid diet. I discussed the case with anesthesiologist, Dr. Camarena. Dr. Camarena does not feel comfortable using you sedation on the patient because of hypoglycemia spells. He has advised to cancel procedure today and hopefully it can be done tomorrow. We will start the patient on a 2000 calorie diabetic diet. PHYSICAL EXAMINATION: GENERAL: He appears very comfortable. VITAL SIGNS: Stable. CARDIOVASCULAR: First and second heart sounds normal. LUNGS: He has some crepitation the left base. He also had some rales at the left base. ABDOMEN: Soft and nontender. IMPRESSION: 1. Recurrent nausea and vomiting, endoscopy cannot be done because of hypoglycemic spell. We will cancel the procedure today. Hopefully it can be done tomorrow morning and Dr. Neal is residential solar consultant for the weekend. Dr. Neal will perform EGD tomorrow morning. MTDD
--- NOTE | 2017-12-18 14:58 | PRG ---
DATE OF SERVICE: 12/18/2017 SUBJECTIVE: Mr. Ferrer did not have his EGD this morning, his blood sugar was too unstable. He was having lability of his blood sugars, hypoglycemic responses. All insulin orders have been held. He has been restarted on only sliding scale insulin as needed. He does report his vomiting is okay, cielo s far he has been tolerate some oral intake. It is presumed he will have an EGD tomorrow. PHYSICAL EXAMINATION: VITAL SIGNS: His temperature is 99.3, BP 150/67, O2 sats 94% on 2 liters. LUNGS: Reveal breath sounds to his right lungs. HEART: Reveals no murmur. ABDOMEN: Soft. Bowel sounds are present and active. IMPRESSION: 1. Recurrent and intractable vomiting, seems to be slightly improved. 2. Chronic pain from previous fractured ribs. 3. End-stage renal disease. 4. Hypoglycemia, probably related to poor p.o. intake and continued use of insulin. ASSESSMENT AND PLAN: We have started him on IV D5W at KVO. He has tolerated some oral intake. At t his point, we will probably let his blood sugars come up somewhat, and still maintain mild sliding sc aimee insulin. He will have an EGD in the morning if he is stable. Plan on having him remain in the h ospital until at least Thursday to decide final disposition at that point.
[2017-12-18] MEDS ORDERED: Ondansetron ODT 4 MG TAB SL PRN (21:42)
[2017-12-18] MEDS ORDERED: Ondansetron HCl/PF 4 MG/2 ML Vial IVP PRN (21:43)
--- NOTE | 2017-12-18 22:22 | PRG ---
DATE OF SERVICE: 12/18/2017 SUBJECTIVE: The patient was seen and examined, seems to be improving in terms of nausea and vomiting . PHYSICAL EXAMINATION: VITAL SIGNS: Afebrile with temperature 98.5, pulse 87, respiratory rate of 20, O2 sat of 98% with bl ood pressure 154/69. HEENT: Unremarkable. CARDIOVASCULAR: First and second heart sounds were heard. RESPIRATORY: Clear to auscultation. DIGESTIVE: Benign abdomen. EXTREMITIES: Some peripheral edema. LABORATORY INVESTIGATION: Low blood sugar at 35 this morning. Otherwise, with a creatinine of 2.84, BUN of 39. CBC showed hemoglobin of 9.5. IMPRESSION: 1. End-stage renal disease, on hemodialysis, due for dialysis tomorrow. 2. Intractable nausea and vomiting, seems to be improving. 3. Severe malnutrition/failure to thrive. PLAN: 1. We will strongly recommend regular diet on this patient, who is severely malnourished, and discon tinuation of the diabetic diet or renal diet. 2. The patient is to be dialyzed in accordance to his schedule which is Thursday, , and with ultrafiltration as tolerated by hemodynamics. 3. Further management to be dependent on the clinical course.
[2017-12-19] MEDS: Acetaminophen 325 MG TAB PO SCH ×4 (00:20→17:47)
[2017-12-19] MEDS ORDERED: Fluconazole In NaCl,Iso-Osm 100 MG in Premix Bag 1 BAG IVPB SCH ×2 (13:15→13:30)
[2017-12-19 15:29] LABS: HIV (1/2) Antibody/Antigen Non-Reactive (NonReactive); HIV 1/2 INDEX 0.05 S/CO (<1.00)
[2017-12-19] MEDS: Lisinopril 10 MG TAB PO SCH ×2 (17:37→20:42)
[2017-12-19] MEDS: Calcium Acetate 667 MG CAP PO SCH ×2 (17:37→17:38)
[2017-12-19] MEDS: Pancrelipase DR 12000 1 CAP PO SCH ×2 (17:38→17:39)
[2017-12-19] MEDS: Amlodipine 10 MG TAB PO SCH (17:38)
[2017-12-19] MEDS: HYDROmorphone 10 mg/100 ml CADD IV PRN (18:11)
--- NOTE | 2017-12-19 18:44 | OP ---
PROCEDURES PERFORMED: Esophagogastroduodenoscopy. PREPROCEDURE DIAGNOSES: 1. Nausea and vomiting. 2. Vague diarrhea. 3. Epigastric pain. 4. Vague dysphagia. POSTPROCEDURE DIAGNOSES: 1. Oropharyngeal and esophageal candidiasis. 2. Multifocal scattered ulcers and erosions in the bulb and second portion of the duodenum. RECOMMENDATIONS: 1. IV Protonix q.12 hours and IV Diflucan. 2. If diarrhea persists, obtain C. diff toxin. ANESTHESIA: TIVA. PROCEDURE IN DETAIL: After the patient was informed of the risks, benefits, possible complications o f endoscopy including perforation, bleeding, reactions to medication and aspiration, informed consent was obtained. The patient was brought to the endoscopy suite where he was sedated in standard fashi on fashion. Once he was comfortable, a bite block was placed in incisural orifice. The endoscope wa s advanced through the bite block and oropharyngeal candidiasis was noted in the back of the soft pal ate. The esophagus was entered and there was elizabeth up and down the esophagus. The stomach was ent ered and found to be normal in forward and retroflexed views. The duodenum was entered and found to have erosions in the duodenum and at the apex of the bulb and down the second portion of the bulb, th ere were linear ulcers and erosions on the with white and black base with no active bleeding. The scope was brought into the stomach. Retroflex views performed and were normal. The scope was re moved. The patient tolerated the procedure well with no complications.
[2017-12-19] MEDS: Pantoprazole 40 MG VIAL IVP SCH (20:42)
--- NOTE | 2017-12-19 22:27 | PRG ---
DATE OF SERVICE: 12/19/2017 SUBJECTIVE: The patient was seen and examined. He did undergo EGD today that reviewed oropharyngeal candidiasis as well as multiple ulcer lesions. PHYSICAL EXAMINATION: GENERAL: The patient was found to be intermittently coughing and expressing some physical discomfort . HEENT: Remarkable for sunken eyeballs. CARDIOVASCULAR: First and second heart sounds were heard. RESPIRATORY SYSTEM: Clear to auscultation. IMPRESSION: 1. End-stage renal disease, hemodialysis dependent. 2. Severe malnutrition. 3. Oropharyngeal candidiasis. 4. Multiple peptic ulcer disease. PLAN: 1. The patient to continue dialysis via current schedule. 2. Outpatient placement in progress. receivable manager is coordinating that. 3. When the patient begins to eat adequate food, I will strongly recommend regular diet.
[2017-12-20] MEDS: Acetaminophen 325 MG TAB PO SCH ×5 (00:22→23:10)
[2017-12-20 04:44] LABS: Hemoglobin A1c 6.6 % (4.0-6.0)
[2017-12-20] MEDS: Calcium Acetate 667 MG CAP PO SCH ×3 (08:48→18:35)
[2017-12-20] MEDS: Amlodipine 10 MG TAB PO SCH (08:48)
[2017-12-20] MEDS: Pancrelipase DR 12000 1 CAP PO SCH ×3 (08:49→18:34)
[2017-12-20] MEDS: Lisinopril 10 MG TAB PO SCH ×2 (08:49→20:06)
[2017-12-20] MEDS: Pantoprazole 40 MG VIAL IVP SCH ×2 (08:49→20:06)
[2017-12-20] MEDS: Fluconazole In NaCl,Iso-Osm 100 MG, Admixture Fee 1 EACH in Premix Bag 1 BAG IVPB SCH (08:53)
[2017-12-20] MEDS ORDERED: Fluconazole In NaCl,Iso-Osm 100 MG in Premix Bag 1 BAG IVPB SCH ×2 (09:00)
[2017-12-20] MEDS: traMADol HCl 50 MG TAB PO PRN (11:28)
[2017-12-20] MEDS: HYDROmorphone 10 mg/100 ml CADD IV PRN (15:14)
--- NOTE | 2017-12-20 16:14 | PRG ---
DATE OF SERVICE: 12/20/2017 SUBJECTIVE: The patient was seen and examined. He seems to be feeling a little bit better now and a ble to keep something down without spitting them up and noted with the following. OBJECTIVE: VITAL SIGNS: Afebrile with temperature of 97.9, pulse 81, respiratory rate 24, blood pressure 142/63 and O2 sat 91%. HEENT: Unremarkable. CARDIOVASCULAR SYSTEM: First and second heart sounds were heard. RESPIRATORY SYSTEM: Clear to auscultation. DIGESTIVE SYSTEM: Revealed a benign abdomen. EXTREMITIES: It showed some peripheral edema. SKIN: No new gross rash. LYMPHATICS: No peripheral lymphadenopathy. IMPRESSION: 1. End-stage renal disease, on hemodialysis. 2. Severe oropharyngeal candidiasis. 3. Severe malnutrition/failure to thrive. 4. Anemia of chronic kidney disease. PLAN: 1. Now, the patient is able to keep things down and tolerate regular diet. We will switch this chinmay ent's diet from diabetic diet to regular diet. This is not really the time to insist on dieting on t his patient given the severe malnutrition state of this patient, therefore, regular diet strongly rec ommended. 2. The patient to continue hemodialysis as tolerated by hemodynamics. 3. Further management to be dependent on the clinical course.
[2017-12-20] MEDS ORDERED: Sodium Chloride 0.9% 1,000 ML IV SCH (16:45)
[2017-12-20] MEDS ORDERED: Sodium Chloride 0.45% 1,000 ML IV SCH (17:45)
[2017-12-20] MEDS: Dronabinol 2.5 MG CAP PO SCH (18:34)
[2017-12-20] MEDS ORDERED: Insulin Regular 300 UNITS/3 ML VIAL SC PRN ×2 (20:28)
--- NOTE | 2017-12-20 22:36 | PRG ---
DATE OF SERVICE: 12/20/2017 SUBJECTIVE: Mr. Ferrer still cannot swallow very well. He has quite a bit of pain with swallowing. MEDICATIONS: On Tylenol q.6 hours, Norvasc, Creon, PhosLo t.i.d., fluconazole 100 mg IV daily, Jonathon did p.r.n. for pain, lisinopril 10 mg b.i.d., Zestril 10 mg b.i.d., Protonix 40 mg IV q.12 hours, and Ultram. OBJECTIVE: VITAL SIGNS: Temperature is 97.9, pulse 81, blood pressure 142/73. GENERAL: He is very cachectic with a swollen right arm. He states this is chronic related to his di alysis graft. ABDOMEN: Nontender. He has got a lot of muscle wasting. LABORATORY DATA: None since 12/18/2017. ASSESSMENT AND PLAN: 1. Duodenal ulcers on esophagogastroduodenoscopy. Biopsies were not taken for Helicobacter pylori. He is on a proton pump inhibitor now. 2. Candidiasis throughout the entire esophagus. We started IV fluconazole. If this improves, we ca n change to p.o. He will need 14 days of treatment. 3. I think his diet probably ought to be full liquid as I do not think he can swallow anything witho ut pain and solid at this point in time. He can have supplements for Ensure and Boost as needed. As his swallowing gets less painful, we can go ahead start on some regular food. 4. With regard to his Meena, I think this is immunosuppression from his multiple medical problems. He did have HIV drawn, which was negative.
[2017-12-21] MEDS: Acetaminophen 325 MG TAB PO SCH ×3 (05:04→19:17)
[2017-12-21] MEDS: Fluconazole In NaCl,Iso-Osm 100 MG, Admixture Fee 1 EACH in Premix Bag 1 BAG IVPB SCH (09:02)
[2017-12-21] MEDS: Amlodipine 10 MG TAB PO SCH (09:03)
[2017-12-21] MEDS: Pantoprazole 40 MG VIAL IVP SCH ×2 (09:03→20:23)
[2017-12-21] MEDS: Pancrelipase DR 12000 1 CAP PO SCH ×3 (09:03→19:17)
[2017-12-21] MEDS: Calcium Acetate 667 MG CAP PO SCH ×3 (09:04→19:17)
[2017-12-21] MEDS: Lisinopril 10 MG TAB PO SCH ×2 (09:04→20:23)
--- NOTE | 2017-12-21 09:27 | PRG ---
DATE OF SERVICE: 12/21/2017 SUBJECTIVE: Mr. Ferrer is sitting up eating. States he is feeling better. He underwent EGD this we ekend, which revealed diffuse candidiasis of the esophagus and GI system. He states he is feeling be tter since being treated. He is now on a regular diet. His blood sugars have been somewhat elevated . He is on sliding scale insulin. OBJECTIVE: LUNGS: Clear. HEART: Reveals no murmur. VITAL SIGNS: BP 166/72, temperature 97.4. IMPRESSION: 1. End-stage renal disease. 2. Failure to thrive, now improved. 3. Gastrointestinal candidiasis. PLAN: Once again, we have discussed with the patient regarding disposition. He will need to make a decision so we could start beginning the process of disposition. We will consult lead case manager to exp edite this. Patient should be able to be discharged fairly soon.
[2017-12-21] MEDS: Dronabinol 2.5 MG CAP PO SCH ×2 (09:32→17:24)
--- NOTE | 2017-12-21 18:29 | PRG ---
SUBJECTIVE: The patient was seen and examined today, seems clinically improving, noted with the foll owing vital signs. PHYSICAL EXAMINATION: VITAL SIGNS: Afebrile with temperature 97.8, pulse 78, respiratory rate of 20, O2 saturation 94% wit h blood pressure 148/68. HEENT: Unremarkable. CARDIOVASCULAR: First and second heart sounds were heard. RESPIRATORY SYSTEM: Clear to auscultation. DIGESTIVE SYSTEM: Revealed a benign abdomen. EXTREMITIES: Showed peripheral edema. NEUROLOGIC: Alert, oriented. No lateralizing sign. IMPRESSION: 1. End-stage renal disease, on hemodialysis. 2. Severe malnutrition/failure to thrive. 3. Severe oropharyngeal candidiasis. PLAN: 1. The patient to be dialyzed tomorrow in accordance with his hemodialysis schedule with ultrafiltra tion as tolerated by hemodynamics. 2. We will continue with appetite stimulant. 3. The patient to continue on regular diet. 4. Further management will be dependent on the clinical course.
[2017-12-21] MEDS ORDERED: Insulin Detemir 100 UNITS/ML 10 UNITS in Pre-Filled Syringe 1 EACH SC SCH (21:00)
[2017-12-22] MEDS: Acetaminophen 325 MG TAB PO SCH ×2 (00:30→05:42)
[2017-12-22] MEDS: Dextrose 50% Abboject 50 ML SYRINGE IVP PRN ×2 (04:02→04:33)
[2017-12-22 04:29] VITALS: TEMP 99.3
[2017-12-22] MEDS ORDERED: Furosemide 40 MG/4 ML VIAL SLOW IVP SCH (05:15)
[2017-12-22] MEDS ORDERED: Lorazepam 2 MG/ML VIAL ONE (07:49)
[2017-12-22] MEDS ORDERED: Lorazepam 2 MG/ML VIAL SLOW IVP PRN (07:53)
--- NOTE | 2017-12-22 07:57 | PRG ---
DATE OF SERVICE: 12/22/2017 HISTORY OF PRESENT ILLNESS: Mr. Ferrer has taken a sudden turn for the worst. This morning he becam e fairly unresponsive, cyanotic. It is apparent that he is in a rapid phase of dying. His family is at his bedside. They requested hospice care. Nurse's report yesterday he walked, he seemed to take a sudden turn for unknown reasons last night. PHYSICAL EXAMINATION: The patient is unresponsive, somewhat cyanotic at this time. Gurgling breath sounds are otherwise noted. LUNGS: Reveal decreased breath sounds bilaterally. IMPRESSION: 1. End-stage renal disease. 2. Atherosclerotic coronary artery disease. 3. Chronic obstructive pulmonary disease. PLAN: The patient is imminently dying. We will get hospice stat as we can. We will call respirator y for suctioning, provide supportive care. Family is at bedside.
[2017-12-22] MEDS ORDERED: Scopolamine 1.5 mg/72 hour Patch TOP SCH (08:00)
[2017-12-22] MEDS: Calcium Acetate 667 MG CAP PO SCH (08:06)
[2017-12-22] MEDS: Dronabinol 2.5 MG CAP PO SCH (08:06)
[2017-12-22] MEDS: Amlodipine 10 MG TAB PO SCH (08:06)
[2017-12-22] MEDS: Pancrelipase DR 12000 1 CAP PO SCH (08:06)
[2017-12-22 08:07] VITALS: BP 170/74
[2017-12-22] MEDS: Pantoprazole 40 MG VIAL IVP SCH (08:07)
[2017-12-22] MEDS: Lisinopril 10 MG TAB PO SCH (08:07)
[2017-12-22] MEDS: Fluconazole In NaCl,Iso-Osm 100 MG, Admixture Fee 1 EACH in Premix Bag 1 BAG IVPB SCH (08:07)
--- NOTE | 2017-12-23 13:43 | DS ---
SUMMARY DATE OF ADMISSION: 12/18/2017 DATE OF : 12/22/2017 FINAL DIAGNOSES: 1. End-stage renal disease, renal failure, on dialysis. 2. Chronic obstructive pulmonary disease. 3. Atherosclerotic coronary artery disease. 4. Intractable vomiting, resolved. 5. Type 1 diabetes mellitus. ADMITTING PHYSICIAN: Dr. Pedro Segovia. CONSULTING PHYSICIAN: Dr. Fenton; Dr. Jones. HOSPITAL SUMMARY: The patient is a 67-year-old male who was admitted on 12/17/2017. He has a histor y of end-stage renal disease, COPD. He has been having some intractable vomiting and diarrhea. He w as seen and evaluated in the emergency room and placed in the hospital. He received IV fluids, as we ll as GI consult. He was made a DNR per his request, but was evidently noted that the patient could not care for himself conservatively at home. Consult was obtained from Dr. Fenton who recommended EGD. Dr. Jones was also consulted for h is dialysis. His hospital course was a slow, mild steady improvement. He did undergo EGD which revealed some scat tered gastritis. No evidence of any persistent ulcer disease. He continued to make slow, steady pro roxy on a daily basis regaining strength and ability to tolerate oral intake. By 12/21/2017, it was determined the patient probably could be discharged from the hospital. It was felt that the best plan of operation was to be discharged to some type of skilled environment either [facility] or possibly a senior living living. I had an extended conversation with the renuka proctor on 12/21/2017 about this. On 12/22/2017 on routine morning rounds, I was notified the patient w as dying, he had taken a sudden turn for the worse on the charrer of 12/22/2017. His fam anyi is at his bedside. The patient was found to be cyanotic, ashen with respiratory distress. He strange d been previously been made a DNR per his request. It was at that time, hospice was consulted. Prio r to hospital being consulted, the patient did pass away. Cause of is probably related to athe rosclerotic coronary artery disease in combination with COPD and end-stage renal disease. The patien t was given IV morphine as well as IV lorazepam prior to his to relieve agitation. His body wa s released to the home of family's choice.
--- NOTE | 2018-01-14 17:11 | PQF ---
GLYNN ALBA RICHARD A MD [id number] [id number] CLINICAL DOCUMENTATION CLARIFICATION FORM: POST DISCHARGE Addendum to original discharge summary date: ____ Late entry note date: __ DATE: 01/14/18 ATTN: Dr. Segovia Please exercise your independent, professional judgment in responding to the clarification form. Clinical indicators are provided on the bottom of this form for your review Please check appropriate box(s): [ ] Acute Respiratory Failure: [ ] with Hypoxia [ ] with Hypercapnia [ ] Acute On Chronic Respiratory Failure: [ ] with Hypoxia [ ] with Hypercapnia [ ] Acute Respiratory Failure due to: (etiology) [ ] Acute Respiratory Insufficiency following (if applicable): [ ] trauma [ ] surgery [ ] Chronic Respiratory Failure only [ ] with Hypoxia [ ] with Hypercapnia [ ] Hypoxia [ ] Other diagnosis [ ] Unable to determine In addition, please specify: Present on Admission (POA): [ ] Yes [ ] No [ ] Unable to determine For continuity of documentation, please document condition throughout progress notes and discharge summary. Thank You. CLINICAL INDICATORS - SIGNS / SYMPTOMS / LABS ABG pH < 7.35 or > 7.45 Decreased oxygen saturation (<90% room air or < 95% on oxygen). Cyanosis/Hypoxia PCO2 > 50 mm Hg (PCO2 findings of 10-15 mm Hg above the patient's normal level if patient has COPD) PO2 < 60 mm Hg (PCO2 findings of 10-15 mm Hg below the patient's normal level if patient has COPD) Labored or rapid respirations (use of accessory muscles or inability to speak full sentences, air hunger) Pulmonary vascular congestion CXR RISK FACTORS History of home O2 use COPD ESRD TREATMENTS: Oxygen Monitoring of oxygenation status 3-[address] Segovia: Cyanotic it is apparent that he is in a rapid phase of dying gurgling breath sounds lungs reveal decreased breath sounds bilaterally Risks: ER: Wears home O2@ 3LNC at home H&P: COPD / ESRD Treatment: 3-6 Oxygen increased from 3LNC to 4LNC 3-6 hospice care (This form is maintained as a part of the permanent medical record) 2014 [employer]. All Rights Reserved Keshia [email or web address] [phone] [email or web address]
== END 2017-12-22 11:53 | disposition expired | DRG 368 ==
LOC: ERS 17:22 → 2SW 22:11 → OBSVTOIN 12-18 12:45 → ONC 12-18 15:55
PROVIDERS: ADMIT Family Medicine; ATTEND Family Medicine
PROC: 0DJ08ZZ Inspection of Upper Intestinal Tract, Via Natural or Artificial Opening Endoscopic (ICD-10-PCS; principal; 2017-12-19)
PROC: 5A1D70Z Performance of Urinary Filtration, Intermittent, Less than 6 Hours Per Day (ICD-10-PCS; 2017-12-19)
PROC: 5A1D70Z Performance of Urinary Filtration, Intermittent, Less than 6 Hours Per Day (ICD-10-PCS; 2017-12-21)
DX: B37.81 Candidal esophagitis (principal); N18.6 End stage renal disease; E43 Unspecified severe protein-calorie malnutrition; E11.22 Type 2 diabetes mellitus with diabetic chronic kidney disease; E11.649 Type 2 diabetes mellitus with hypoglycemia without coma; I12.0 Hypertensive chronic kidney disease with stage 5 chronic kidney disease or end stage renal disease; B37.0 Candidal stomatitis; R11.10 Vomiting, unspecified; K26.9 Duodenal ulcer, unspecified as acute or chronic, without hemorrhage or perforation; J44.9 Chronic obstructive pulmonary disease, unspecified; I25.10 Atherosclerotic heart disease of native coronary artery without angina pectoris; R19.7 Diarrhea, unspecified; Z79.4 Long term (current) use of insulin; Z99.2 Dependence on renal dialysis; Z51.5 Encounter for palliative care; Z68.21 Body mass index [BMI] 21.0-21.9, adult; R62.7 Adult failure to thrive; D63.1 Anemia in chronic kidney disease; K57.30 Diverticulosis of large intestine without perforation or abscess without bleeding; Z91.81 History of falling; Z66 Do not resuscitate; R06.03 Acute respiratory distress; R23.0 Cyanosis
CPT/HCPCS: 36415; 36416; 80053; 82550; 82553; 83036; 83605; 83690; 83735; 83880; 84484; 85025; 87324; 87389; 87449; 87493; 90935; 93005; 96361; 96372; 96374; 96375; J2270; C9113; G0257; G8996-GN-CM; G8997-GN-CL; J1450; J1815; J1940; J2060; J2405; Q0162; Q0167